=== PATIENT | male | born 1970 | race Caucasian/White ===

== ENCOUNTER 2022-05-03 17:45 | Emergency (ER) | payer OTHER, SELFPAY ==
[2022-05-03 17:46] VITALS: BP 153/91; PULSE 98; RESP 16; TEMP 36.8; O2SAT 98; BMI 29.9
--- NOTE | 2022-05-03 18:28 | EDS_ITS ---
HPI History of Present Illness Chief Complaint: Dental Informant: patient Onset/Context/Timing Onset: Days Narrative Narrative: Patient present secondary to left facial pain and swelling. He had a broken infected tooth that he saw his dentist for on . He was placed on clindamycin. He went back to his dentist today who tried to numb him up and extract the tooth but the anesthetic was not effective and they were not able to continue. Patient states he feels like his left face is now more swollen. Dentist did write him for a new antibiotic but did not write him for anything to control the pain. He has been taking Tylenol and ibuprofen without improvement. PFSH PFS Medical History no medical history no medical history Home Medications clindamycin HCl 150 mg capsule 150 mg PO Q6H 05/03/22 [History Last Taken Unknown] hydrocodone-acetaminophen 5-325mg 5mg-325mg 1 tab PO Q6H PRN pain 3 days #14 tabs 05/03/22 [Rx Last Taken Unknown] Allergy/AdvReac Type Severity Reaction Status Date / Time No Known Allergies Allergy Verified 05/03/22 17:47 Social History Smoking Status: Unknown if ever smoked ROS ROS ED Constitutional Constitutional ED: Denies chills or fever(s) Eyes Eyes: Denies change in vision or discharge from eye(s) ENT ENT ED: Reports other Details: Dental pain with left facial swelling ; Denies discharge from eye(s), rhinorrhea or sore throat Cardiovascular Cardiovascular: Denies chest pain or palpitations Respiratory/Chest Respiratory/Chest: Denies cough or dyspnea Gastrointestinal Gastrointestinal: Denies abdominal pain, nausea or vomiting Musculoskeletal Musculoskeletal: Denies back pain or extremity pain Integumentary Denies Abrasions or rash Neurologic Neurologic: Denies headache(s) or weakness Psychiatric Psychiatric: Denies anxiety or depression Allergic/Immunologic Allergic/Immunologic ED: Denies lip swelling or urticaria EXAM Physical Exam Const Vital Signs: 05/03/22 17:46 Temperature 98.2 F Temperature Source Temporal Pulse Rate 98 Respiratory Rate 16 Blood Pressure 153/91 H Blood Pressure Mean 111 Pulse Ox 98 Oxygen Delivery Method Room Air Positive well nourished and well developed General Appearance ED: well developed HEENT Reports normocephalic and head/scalp atraumatic HEENT Narrative: Mild left maxillary edema. Intraoral examination reveals left maxillary molar broken at gumline with mild surrounding edema. Posterior pharynx exam is normal. There is no evidence of Richardson's angina. He speaks with a strong voice and is tolerating secretions well. 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 He has an appointment to see his dentist next Tuesday. We discussed Richardson's angina so he knows what to monitor for at home. I will write him for [place] at home. Discharge Plan Triage Chief Complaint: Dental ED Provider: Shruthi Guo Dx/Rx/DC Orders Clinical Impression: Dental infection Instructions: ED Dental Abscess Prescriptions: New hydrocodone-acetaminophen 5-325 mg tablet 1 tab PO Q6H PRN (Reason: pain) 3 Days Qty: 14 0RF No Action clindamycin HCl 150 mg Capsule 150 mg PO Q6H Primary Care Provider: NOT,DEFINED Referrals: NOT,DEFINED [Primary Care Provider] -
== END 2022-05-03 18:58 | disposition home or self-care (01) ==
PROVIDERS: Emergency Provider Emergency Medicine; Visit Provider Emergency Medicine
DX: K04.7 Periapical abscess without sinus (principal); R51.9 Headache, unspecified; R22.0 Localized swelling, mass and lump, head
CPT/HCPCS: 99282

== ENCOUNTER → 2022-07-21 | Outpatient (CLI) | payer OTHER, SELFPAY ==
[2022-07-21 12:50] LABS: Absolute Lymphocyte Count 2.38 X10^3/uL (0.83-4.51); Absolute Neutrophil Count 5.1 X10^3/uL (2.0-7.7); Basophil% 1.1 % (0-1); Eosinophil# 0.14 X10^3/uL; Eosinophils% 1.6 % (0-5); Hematocrit 48.5 % (40-54); Hemoglobin 15.5 g/dL (13.0-16.5); Lymphocyte # 2.38 X10^3/ul (0.83-4.51); Lymphocyte % 27.2 % (19-41); Mean Corpuscular Hgb 29.5 pg (27.0-32.0); Mean Corpuscular Volume 92.4 fL (80-94); Mean Platelet Vol. 9.9 fl (6.2-12.0); Monocyte# 1.01 X10^3/uL; Monocyte% 11.5 % (0-10); NRBC Flagged by Analyzer 0 % (0-5); Neutrophil # 5.09 X10^3/uL (2.7-7.7); Neutrophil % 58.1 % (47-70); Platelet Count 366 K/mm3 (150-450); RBC Distribution Width CV 13.4 % (11.6-14.6); RBC Distribution Width SD 45.7 fl (35.1-43.9); Red Blood Count 5.25 M/mm3 (4.6-6.2); White Blood Count 8.8 K/mm3 (4.4-11.0)
[2022-07-21 13:13] LABS: AST(SGOT) 27 U/L (15-37); Alanine Aminotransfer ALT/SGPT 63 U/L (16-61); Albumin, Serum 3.6 g/dL (3.2-5.0); Alkaline Phosphatase 57 U/L (45-117); Anion Gap 9 (5-15); BUN 14 mg/dL (7-18); BUN/Creat Ratio 11.1 RATIO (10-20); Calcium,Total 9.3 mg/dL (8.5-10.1); Chloride 104 mmol/L (98-107); Cholesterol 210 mg/dL (200); Creatinine, Serum 1.26 mg/dL (0.70-1.30); EST Glomerular Filtration Rate 64 mL/min (>60); Est Glom Filt Rate - Afr Amer 78 mL/min (>60); Globulin 3.6 g/dL (2.2-4.2); Glucose 121 mg/dL (74-106); High Density Lipoprotein 38 mg/dL; Potassium 4.6 mmol/L (3.5-5.1); Protein, Total 7.2 g/dL (6.4-8.2); Sodium Level 138 mmol/L (136-145); Triglycerides 191 mg/dL; Very Low Density Lipoprotein 38 mg/dL (5-40)
[2022-07-22 12:02] LABS: Hemoglobin A1c 6.1 % (3.8-5.6)
== END | disposition home or self-care (01) ==
LOC: BIMLAB 09:06
PROVIDERS: PCP Internal Medicine; Referring Provider Internal Medicine; Visit Provider Internal Medicine
DX: R07.89 Other chest pain (principal); R06.02 Shortness of breath; R73.09 Other abnormal glucose
CPT/HCPCS: 36415; 80053; 80061; 83036; 85025

== ENCOUNTER → 2022-08-02 | Outpatient (CLI) | payer OTHER, SELFPAY ==
--- NOTE | 2022-08-02 13:30 | STE_ITS ---
Reason For Study: Chest Pain; Dyspnea Stress Results Protocol: Juan Protocol Maximum Predicted HR: 169 bpm Target HR: 144 bpm % Maximum Predicted HR: 86 % DurationHeart Rate Stage (mm:ss) (bpm) BP Comment Baseline 82 118/88No Chest Pain Juan Protocol Stage I 3:00 111 124/80No Chest Pain Juan Protocol Stage II 3:00 130 134/82No Chest Pain; Mild Dyspnea Juan Protocol Stage III 2:00 146 150/80No Chest Pain; Mod Dyspnea Recovery 112 130/80No Chest Pain; No Dyspnea Stress Duration: 8:00 mm:ss Maximum Stress HR: 146 bpm METS: 10 Baseline Echocardiogram Findings Stress Echo Wall motion Data Resting WM Intermediate WM Stress WM ECHO/Stress Test Echo w/o Contrast Interpretation Summary Exercise stress echo. 52-year-old man with a history of chest pain. Stress protocol: Resting EKG demonstrates normal sinus rhythm with a rate of 86 bpm resting bloo d pressure is 118/88 mmHg. The patient exercised according to the regular Juan protocol for total d uration of 8 minutes completing 2 minutes into stage III of the Juan protocol. The maximum heart ra te attained was 148 bpm which was 87% of max impacted heart rate the maximum workload was 10.1 meta bolic equivalents. At rest there were no ST or T wave changes noted to suggest ischemia and at peak e xercise upsloping ST changes were noted test was terminated due to dyspnea. The peak blood pressure was 150/80 mmHg with a rate-pressure product of 21,900. No clinical angina was noted. Stress echocardiogram. Resting echocardiogram demonstrated preserved left ventricular systolic functio n estimated at 60%. With exercise there was thickening of all henley and reduction of low ventricula r cavity size peaking at approximately 75% with no wall motion abnormalities noted. Conclusion: Normal exercise stress echo at a high workload with no wall motion abnormalitie s of ischemia noted. Ordering Physician: Elly Bryson Referring Physician: Elly Bryson Performed By: Patricia Vizcaino, RDCS, RVT
== END | disposition home or self-care (01) ==
LOC: CVS 13:29
PROVIDERS: PCP Internal Medicine; Visit Provider Internal Medicine
DX: R07.89 Other chest pain (principal); R06.02 Shortness of breath
CPT/HCPCS: 93017; 93350

== ENCOUNTER → 2022-08-24 | Outpatient (CLI) | payer OTHER, SELFPAY | END | disposition home or self-care (01) | LOC: SL 13:06 | PROVIDERS: PCP Internal Medicine; Visit Provider Internal Medicine | DX: R29.818 Other symptoms and signs involving the nervous system (principal); G47.10 Hypersomnia, unspecified | CPT/HCPCS: 95806 ==

== ENCOUNTER → 2022-09-09 | Outpatient (CLI) | payer OTHER, SELFPAY | END | disposition home or self-care (01) | LOC: SL 11:50 | PROVIDERS: PCP Internal Medicine; Visit Provider Internal Medicine | DX: Z46.89 Encounter for fitting and adjustment of other specified devices (principal) ==

== ENCOUNTER → 2023-08-04 | Outpatient (CLI) | payer OTHER, SELFPAY ==
[2023-08-04 12:08] LABS: Absolute Lymphocyte Count 3.03 X10^3/uL (0.83-4.51); Absolute Neutrophil Count 6.4 X10^3/uL (2.0-7.7); Basophil# 0.13 X10^3/uL; Basophil% 1.2 % (0-1); Eosinophils% 1.9 % (0-5); Hematocrit 51.1 % (40-54); Hemoglobin 16.4 g/dL (13.0-16.5); Lymphocyte # 3.03 X10^3/ul (0.83-4.51); Mean Corp Hgb Conc 32.1 g/dL (32-36); Mean Corpuscular Hgb 29.9 pg (27.0-32.0); Mean Corpuscular Volume 93.1 fL (80-94); Mean Platelet Vol. 10.8 fl (6.2-12.0); Monocyte# 1.01 X10^3/uL; Monocyte% 9.3 % (0-10); NRBC Flagged by Analyzer 0 % (0-5); Neutrophil # 6.39 X10^3/uL (2.7-7.7); Neutrophil % 59.1 % (47-70); Platelet Count 381 K/mm3 (150-450); RBC Distribution Width CV 13.6 % (11.6-14.6); RBC Distribution Width SD 46.6 fl (35.1-43.9); Red Blood Count 5.49 M/mm3 (4.6-6.2); White Blood Count 10.8 K/mm3 (4.4-11.0)
[2023-08-04 13:05] LABS: ALB/GLOB Ratio 0.9 RATIO (0.9-2.4); AST(SGOT) 33 U/L (15-37); Alanine Aminotransfer ALT/SGPT 68 U/L (16-61); Albumin, Serum 3.7 g/dL (3.2-5.0); Alkaline Phosphatase 78 U/L (45-117); Anion Gap 8 (5-15); BUN 14 mg/dL (7-18); BUN/Creat Ratio 11.4 RATIO (10-20); Calcium,Total 9.1 mg/dL (8.5-10.1); Chloride 105 mmol/L (98-107); Cholesterol 194 mg/dL (200); Creatinine, Serum 1.23 mg/dL (0.70-1.30); EST Glomerular Filtration Rate 66 mL/min (>60); Est Glom Filt Rate - Afr Amer 79 mL/min (>60); Globulin 4.1 g/dL (2.2-4.2); Glucose 169 mg/dL (74-106); High Density Lipoprotein 36 mg/dL; Potassium 4.7 mmol/L (3.5-5.1); Protein, Total 7.8 g/dL (6.4-8.2); Sodium Level 138 mmol/L (136-145); Triglycerides 329 mg/dL; Very Low Density Lipoprotein 66 mg/dL (5-40)
[2023-08-04 13:27] LABS: Microalbumin,Random Urine 11.6 mg/L (NO RANGE EST.); Microalbumin:Creatinine Ratio 5.6 mg/g CRE (<30 mg/g CRE)
== END | disposition home or self-care (01) ==
LOC: BIMLAB 08:39
PROVIDERS: PCP Internal Medicine; Referring Provider Internal Medicine; Visit Provider Internal Medicine
DX: E11.9 Type 2 diabetes mellitus without complications (principal); E78.2 Mixed hyperlipidemia
CPT/HCPCS: 36415; 80053; 80061; 82043; 82570; 85025

== ENCOUNTER 2023-09-06 07:01 | Day surgery (SDC) | payer OTHER, SELFPAY ==
--- NOTE | 2023-09-05 | COLBX_PTH ---
PATIENT: KALEIGH CUELLAR Jr. LOC: EN U#:[id number] AGE/SX: 53/M ROOM: RE09/06/[address]: Dr. Tung Webster MD : 1970 BED: DIS: 09/06/2023 SPEC #: [id number] RECD: 09/06/23 10:55 STATUS: CHETAN REDafne #: [id number] LAURIE: 09/05/23 00:[address]: Tung Webster DEPT: SURGICAL PATHOLOGY RECD BY: Evaristo Jane ENTERED: 09/06/23 10:55 SP TYPE: COLON BX OTHR DR: Dr. Elly Bryson MD Tissues: A - Cecum, NOS B - Rectum, NOS Procedures: Surgery Specimen Level IV HEADER OPERATION: Colonoscopy, biopsy, polypectomy PRE-OP DIAGNOSIS: Screen for colon cancer TISSUE SUBMITTED: A- Cecum mass biopsy, B- Rectal polyp MICROSCOPIC DIAGNOSIS A. 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 B. Rectal polyp, polypectomy: Hyperplastic polyp. / 09/07/23 COMMENT Definite invasive carcinoma is not identified in the specimen. Correlation with clinical, endoscopic findings and appropriate follow up are necessary. MICROSCOPIC DESCRIPTION Slides are reviewed. GROSS DESCRIPTION A. Received in fixative is one container labeled with the patient's name and designated Cecum mass biopsy. The specimen consists of multiple irregular fragments of light lockhart soft tissue that in aggregate measure 1.0 x 0.3 x 0.1 cm. The specimen is totally submitted in one cassette. B. Received in fixative is one container labeled with the patient's name and designated Rectal polyp. The specimen consists of a pink-red polyp measuring 0.9 x 0.9 x 0.7 cm. The presumed base is inked. The polyp is serially sectioned and submitted entirely in one cassette. / 09/06/2023 TC:0 CPT: 57838f8
[2023-09-06 07:21] VITALS: BP 141/88; PULSE 89; RESP 20; TEMP 35.3; O2SAT 97; BMI 31.4
[2023-09-06] MEDS: Lactated Ringers 1,000 ML 15 ML IV (07:31)
[2023-09-06 07:50] LABS: Bedside Glucose 156 mg/dL (74-106)
--- NOTE | 2023-09-06 07:56 | HP.PCM_ITS ---
HPI - General HPI Narrative KALEIGH CUELLAR, is a 53 M who presents for screening colonoscopy. He has never had a colonoscopy in the past. He reports only family history of colon cancer as his grandfather. He denies any abdominal pain or blood in the stool. He is not on blood thinners. [facility] Medical History (Updated 09/06/23 @ 07:[address] Tung Webster MD) Alcohol use Back pain Bone fracture COPD (chronic obstructive pulmonary disease) CPAP (continuous positive airway pressure) dependence Diabetes Dietary restriction Family hx of colon cancer Former smoker Gout Heartburn History of edema History of irregular heartbeat History of stress test History of ulceration Injury of head and neck Leg cramps Loss of hearing Restless legs Shortness of breath on exertion Wears contact lenses Home Medications atorvastatin 10 mg tablet (Lipitor) 10 mg PO QHS #30 tabs 08/04/23 [Rx Last Taken 09/04/23] metformin 500 mg tablet 500 mg PO DAILY #30 tabs 08/04/23 [Rx Last Taken 09/04/23] ibuprofen 200 mg tablet 400 mg PO Q6H PRN PRN pain 08/09/23 [History Last Taken Unknown] oqhuifan-yu-koqjj 300 mcg-K 60 mcg-lycop 600 mcg-lutein 300 mcg tablet (Century Men 50 Plus) 1 tab PO DAILY 09/02/23 [History Last Taken 09/04/23] Allergy/AdvReac Type Severity Reaction Status Date / Time No Known Allergies Allergy Verified 09/06/23 07:24 Family History (Reviewed 08/18/23 @ 12:39 by Ana Garcia REFRIGERATING TECHNICIAN, REFRIGERATING TECHNICIAN-C) Mother Arthritis Diabetes Hypertension Grandmother Arthritis High cholesterol Hypertension Grandfather Colon cancer Surgical History (Updated 09/02/23 @ 10:07 by Sanam Lopez) History of surgical procedure Hx of neck surgery Social History (Reviewed 08/18/23 @ 12:39 by Ana Garcia REFRIGERATING TECHNICIAN, REFRIGERATING TECHNICIAN-C) household members: spouse current occupational status: employed 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 pets and animals: No Smoking Status: Former smoker quit date: 12/14/21 pack-years: 20 alcohol intake: current alcohol intake frequency: a few times a month details: beer occasionally substance use type: does not use caffeine: Yes (1) Type: coffee frequency: 3-4 times per week do you feel safe at home: Yes Past Medical/Surgical History Planned Operation Planned Operative Procedure/s: CSCOPE OA Previous Hospitalizations/Surgeries HX Hospitalizations: No Any Problems With Anesthesia: No You/Your Family Experience Fever (Hyperthermia) With Anes: No Cholinesterase deficiency: No Cardiovascular Hx Hypertension: No Respiratory Hx Sleep Apnea: Yes CPAP: Yes (NONCOMPLIANT) BIPAP: No Hx Respiratory Tract Infection/Cold (presently): No Result (for STOP score): Positive Smoking Status: Former smoker Neurological Does patient have nerve stimulator: No Reproduction : No Miscellaneous Recent Exposure to Contagious Disease: No Allergies No Known Allergies Allergy (Verified 09/06/23 07:24) Discharge Is Pt Admitted From a Senior Care, or a Intermediate: No After D/C, Where Do you Plan to Go: Return Home Vital Signs Vital Signs Vital Signs: 09/06/23 07:21 09/06/23 07:21 Temperature 95.6 F L Temperature Source Temporal Pulse Rate 89 Respiratory Rate 20 H Respiratory Pattern Normal Blood Pressure 141/88 H Blood Pressure Mean 105 Blood Pressure Source Monitor Blood Pressure Position Semi-Fowlers Blood Pressure Location Right Arm Pulse Ox 97 Oxygen Delivery Method Room Air Weight Weight: 251 lb 5.231 oz Body Mass Index (BMI) 31.4 Physical Exam Const alert and oriented x3 HEENT normocephalic Eyes PERRL Resp normal respiratory effort and normal air movement Cardio regular rate and regular rhythm GI soft to palpation, non-tender and non-distended Extremity normal to inspection Assessment & Plan Assessment/Plan (1) Screen for colon cancer: PLAN: I explained endoscopy in detail to the patient. I explained the risks including but not limited to stroke or heart attack with anesthesia, perforation of the GI tract, bleeding, infection. I explained that any of these could necessitate further emergency surgery. The patient understands and all questions were answered sufficiently. The patient wishes to proceed with procedure. Tung Webster MD Pager: [facility] [address] [place] [address], [address] [place] [address] Office: Surgery Risks - Colonoscopy Risks Include but are not Limited To: Risks include but are not limited to: Bleeding, perforation requiring further surgery, inability to complete colonoscopy requiring barium enema.
[2023-09-06 08:30] VITALS: BP 107/86; BP 141/88; PULSE 73; RESP 16; TEMP 36.3; O2SAT 92
--- NOTE | 2023-09-06 08:31 | OP.COLON_ITS ---
Patient Name: Alvino Ballard Procedure Date: 09/06/2023 8:02 AM Date of : 1970 Age: 53 Procedure: Colonoscopy Indications: Screening for colorectal malignant neoplasm Providers: Tung Webster MD Referring MD: Elly Bryson Md Medicines: Propofol per Anesthesia Patient Profile: This is a 53 year old male. Refer to note in patient chart for documentation of history and physical. Last Colonoscopy: none. The patient's first colonoscopy is today. Complications: No immediate complications. Procedure: Pre-Anesthesia Assessment: - Prior to the procedure, a History and Physical was performed, and patient medications and allergies were reviewed. The patient's tolerance of previous anesthesia was also reviewed. The risks and benefits of the procedure and the sedation options and risks were discussed with the patient. All questions were answered, and informed consent was obtained. Prior Anticoagulants: The patient has taken no anticoagulant or antiplatelet agents. After reviewing the risks and benefits, the patient was deemed in satisfactory condition to undergo the procedure. After I obtained informed consent, the scope was passed under direct vision. Throughout the procedure, the patient's blood pressure, pulse, and oxygen saturations were monitored continuously. The pediatric colonoscope was introduced through the anus and advanced to the cecum, identified by appendiceal orifice and ileocecal valve. The colonoscopy was performed without difficulty. The patient tolerated the procedure well. The quality of the bowel preparation was good. The ileocecal valve, appendiceal orifice, and rectum were photographed. Scope In: 8:12:16 AM Scope Withdrawal Time 0 hours 9 minutes 42 seconds Scope Out: 8:26:20 AM Total Procedure Duration Time 0 hours 14 minutes 4 seconds Findings: A polypoid non-obstructing large mass was found in the cecum. The mass was non-circumferential. No bleeding was present. This was biopsied with a cold forceps for histology. A medium polyp was found in the rectum. The polyp was removed with a hot snare. Resection and retrieval were complete. The exam was otherwise without abnormality on direct and retroflexion views. Impression: - Tumor in the cecum. Biopsied. - One medium polyp in the rectum, removed with a hot snare. Resected and retrieved. - The examination was otherwise normal on direct and retroflexion views. Recommendation: - Discharge patient to home. - Resume previous diet. - Continue present medications. - Await pathology results. - Repeat colonoscopy for surveillance based on pathology results. - Return to my office in 1 week. Procedure Code(s): --- Professional --- 40775, 33, Colonoscopy, flexible; with removal of tumor(s), polyp(s), or other lesion(s) by snare technique 17599, 59, Colonoscopy, flexible; with biopsy, single or multiple Diagnosis Code(s): --- Professional --- Z12.11, Encounter for screening for malignant neoplasm of colon D49.0, Neoplasm of unspecified behavior of digestive system D12.8, Benign neoplasm of rectum CPT copyright 2021 [employer]. All rights reserved. The codes documented in this report are preliminary and upon irrigation equipment installer review may be revised to meet current compliance requirements. Tung Webster MD 09/06/2023 8:30:46 AM This report has been signed electronically. Number of Addenda: 0 Note Initiated On: 09/06/2023 8:02 AM
--- NOTE | 2023-09-06 08:31 | OP.CCLET_ITS ---
09/06/2023 Elly Bryson Md Re : Colonoscopy procedure for Alvino Ballard Dear Braydon This procedure was performed on Wednesday, September 06, 2023. My impressions and recommendations are as follows: Impressions : - Tumor in the cecum. Biopsied. - One medium polyp in the rectum, removed with a hot snare. Resected and retrieved. - The examination was otherwise normal on direct and retroflexion views. Recommendations : - Discharge patient to home. - Resume previous diet. - Continue present medications. - Await pathology results. - Repeat colonoscopy for surveillance based on pathology results. - Return to my office in 1 week. My findings are described in the full procedure note, which is enclosed. If I can be of further assistance, please feel free to contact me at Doctor phone number(s): , Work: . Sincerely, Tung Webster MD 09/06/2023 8:30:46 AM This report has been signed electronically.
[2023-09-06 08:35] VITALS: BP 114/66; BP 141/88; PULSE 73; RESP 16; O2SAT 92
[2023-09-06 08:40] VITALS: BP 100/73; BP 141/88; PULSE 74; RESP 16; O2SAT 92
[2023-09-06 08:45] VITALS: BP 104/75; BP 141/88; PULSE 74; RESP 16; TEMP 36.5; O2SAT 100
[2023-09-06 09:05] VITALS: BP 141/88
== END 2023-09-06 09:15 | disposition home or self-care (01) ==
LOC: EN 07:03 → AC 07:04
PROVIDERS: PCP Internal Medicine; Referring Provider Internal Medicine; Visit Provider Surgery
PROC: 0DJD8ZZ Inspection of Lower Intestinal Tract, Via Natural or Artificial Opening Endoscopic (ICD-10-PCS; CPT 45378; principal; 2023-09-06 08:10)
DX: Z12.11 Encounter for screening for malignant neoplasm of colon (principal); J44.9 Chronic obstructive pulmonary disease, unspecified; E11.9 Type 2 diabetes mellitus without complications; D01.0 Carcinoma in situ of colon; K62.1 Rectal polyp; Z80.0 Family history of malignant neoplasm of digestive organs; Z87.891 Personal history of nicotine dependence; Z79.899 Other long term (current) drug therapy; Z79.84 Long term (current) use of oral hypoglycemic drugs
CPT/HCPCS: 45385; 45380; 82962; 88305; J7120; J2405

== ENCOUNTER → 2023-09-20 | Outpatient (CLI) | payer OTHER, SELFPAY ==
--- NOTE | 2023-09-20 07:18 | CT_ITS ---
STUDY: LOW DOSE CT LUNG CANCER SCREENING REASON FOR EXAM: Male, 53 years old. Smoker RADIATION DOSAGE (If Supplied By Facility): CTDIvol = ( 4.02 ) mGy, DLP = ( 158.53 ) mGycm TECHNIQUE: No contrast was administered. Low dose technique was utilized (average mAS-38 and kVp 120). 1.25 mm axial source images with a slice interval of 1.25-mm were reconstructed in lung windows. 2.5 mm axial source images with a slice interval of 2.5-mm were reconstructed in lung windows. 5.0 mm axial source images with a slice interval of 5.0-mm were reconstructed in soft tissue windows. COMPARISON: None. NODULES: No suspicious nodules are seen. Emphysema: Minimal degree of emphysematous changes more prominent in the upper lobes. Minimal linear scarring at the lung bases. Endobronchial lesion: None Aorta: Unremarkable. CORONARY ARTERIES: Coronary artery calcification is seen. Heart: Unremarkable Pulmonary artery: Unremarkable Mediastinal nodes: Unremarkable Other chest and abdominal findings: CT/Low Dose CT Lung Screening IMPRESSION: Lung-RADS category 2 - Continue annual screening with LDCT in 12 months. IMPORTANT NOTES FOR USE: ACR Lung-RADS Version 1.1 Assessment Categories Release Date: 2018 Category: Coded 0-4 bases on nodule(s) with highest degree of suspicion. Negative screen is defined as categories 1 and 2; a positive screen is defined as categories 3 and 4. Category 3 and 4A nodules that are unchanged on interval CT should be coded as category 2, and individuals returned to screening in 12 months. Category 4X: Category 3 or 4 nodules with additional imaging findings that increase the suspicion of lung cancer, such as spiculation, GGN that doubles in size in 1 year, enlarged lymph notes, etc. Category Modifiers: S (significant finding unrelated to lung cancer) Electronically Signed: Fabian Malcolm MD at 9:57 EDT ,
--- NOTE | 2023-09-20 07:18 | CT_ITS ---
STUDY: CT CHEST, ABDOMEN T PELVIS WITH CONTRAST REASON FOR EXAM: Male, 53 years old. colon cancer-NEW DIAGNOSIS RADIATION DOSAGE (If Supplied By Facility): CTDIvol = ( 20.52 ) mGy, DLP = ( 2216.62 ) mGycm TECHNIQUE: Transaxial imaging was performed following intravenous administration of IV 100mL Isovue-370. Oral contrast was administered. Individualized dose optimization techniques were used for this CT. COMPARISON: No relevant priors. FINDINGS: CHEST Mild to moderate cystic emphysematous changes are present bilaterally. No visualized consolidation or pulmonary edema or pleural effusion. No nodules or spiculated lesions are present. Mild interstitial fibrotic scarring is seen in the lung bases. There is no demonstrated pleural abnormality. Normal heart and pericardium. There are calcifications of the coronary arteries. Normal mediastinum. Normal hilar regions. Normal unenhanced pulmonary arteries. Normal aorta arch and descending thoracic aorta. There is an increased kyphosis of the thoracic spine. ABDOMEN No visualized primary or metastatic lesions to the solid organs or omentum. No lymphadenopathy is present. No lytic or blastic lesions are seen in the bony structures. There is decreased attenuation of the liver consistent with steatosis. Normal gallbladder and extrahepatic biliary system. Normal spleen. Normal pancreas. Normal bilateral adrenal glands. Normal right kidney. Normal left kidney. The stomach and small bowel loops are opacified with oral contrast. No contrast is present in the colon. A 3.05 x 2.74 cm lobular soft tissue mass is present in the base of the cecum, consistent with malignant neoplasm. The remaining colonic loops are unremarkable. Normal visualized stomach. Normal small intestine. Normal colon. The appendix is visualized and appears normal. There is diffuse atherosclerotic calcification of the abdominal aorta, without a demonstrated aneurysm. Normal inferior vena cava. Normal retroperitoneum. There is a small umbilical hernia containing fat. There are diffuse degenerative changes of the visualized lumbar spine. PELVIS Normal urinary bladder. Small fat-containing right inguinal hernia. Normal visualized small intestine. There are multiple colonic diverticula of the sigmoid colon consistent with chronic diverticulosis. There is no pelvic fluid. There is no pelvic lymphadenopathy or mass lesion. Normal visualized pelvic arteries. Normal abdominal wall. There are diffuse degenerative changes of the visualized lumbar spine. CT/CT Chest, Abd, Pel w/Contrast IMPRESSION: 1. Chest: No acute or subacute process 2. Abdomen and pelvis: A 3.05 x 2.74 cm lobular soft tissue mass is present in the base of the cecum, consistent with malignant neoplasm. The remaining colonic loops are unremarkable. Electronically Signed: Francesco Latif MD at 12:49 EDT ,
[2023-09-20 07:52] LABS: CREATININE FINGERSTICK < 1.0 mg/dL (0.70-1.30); EGFR FINGERSTICK > 60.0000 mL/min (>60)
== END | disposition home or self-care (01) ==
PROVIDERS: PCP Internal Medicine; Referring Provider Nurse Practitioner Acute Care; Visit Provider Nurse Practitioner Acute Care
DX: C18.9 Malignant neoplasm of colon, unspecified (principal); F17.210 Nicotine dependence, cigarettes, uncomplicated
CPT/HCPCS: 71260; 71271; 74177; Q9967

== ENCOUNTER 2023-10-24 09:49 | Inpatient (IN) | payer OTHER, SELFPAY ==
--- NOTE | 2023-10-19 07:14 | EKG12_ITS ---
Test Reason : PREOP Blood Pressure : / mmHG Vent. Rate : 090 BPM Atrial Rate : 090 BPM P-R Int : 164 ms QRS Dur : 088 ms QT Int : 368 ms P-R-T Axes : 056 005 058 degrees QTc Int : 450 ms Sinus rhythm with Premature supraventricular complexes Otherwise normal ECG Confirmed by AMPARO ISLAS, AUDIE ([id number]), order editor NEERU MARTINEZ ([id number]) on 10/20/2023 6:06:17 AM Referred By: Tung Webster Confirmed By:AUDIE CHRISTENSEN MD
[2023-10-19 09:50] LABS: Magnesium 2.5 mg/dL (1.6-2.6)
[2023-10-24] VITALS (15 sets, daily range): BP systolic 94–132; BP diastolic 64–96; PULSE 73–98; RESP 16–18; TEMP 36.1–37.2; O2SAT 94–98; BMI 30.6
--- NOTE | 2023-10-24 | IMM_PTH ---
PATIENT: KALEIGH CUELLAR Jr. LOC: MS3 U#:[id number] AGE/SX: 53/M ROOM: MS305 RE10/24/[address]: Dr. Tung Webster MD : 1970 BED: 1 DIS: 10/31/2023 SPEC #: [id number] RECD: 11/01/23 09:30 STATUS: CHETAN REDafne #: [id number] LAURIE: 10/24/23 00:[address]: Tung Webster DEPT: IMMUNOHISTOCHEMISTRY RECD BY: Ranulfo Pitts ENTERED: 11/01/23 09:31 SP TYPE: IMMUNO OTHR DR: MD Dr. Asa Nguyễn MD Tissues: Colon, NOS Procedures: MSH2 (add) MLH-1 (add) MSH6 (add) Anti-PMS2 (add) KI-67 (add) P53 (add) MOC-31 (add) HER-2-BENOIT (initial) PHYSICIAN & INSTITUTION [address] [address] SPECIMEN INFORMATION: Tissue Source: Right colon Clinical Info: Colon cancer Specimen Number: [id number] CPT code: 58400,84909t2 METHODOLOGY: Deparaffinized sections of prefer/formalin-fixed tissue or PAP/DQ stained slides are incubated with monoclonal/polyclonal antibodies/oligonucleotide probes. Localization is made via biotin free immunoperoxidase method. Appropriate controls are performed and reacted as expected. Results on target cell population are indicated in the following table: RESULTS: ANTIBODY / CLONE RESULT MOC-31 (4561) positive Her-2neu (CB11) negative P53 (DO-7) Inconclusive, indeterminate Ki-67 (30-9) positive, >90% PMS2 (GLE8040) positive MSH6 (44) positive MSH2 (25D12) positive MLH1 (M1) positive These tests were developed and their performance characteristics determined by [facility]. They may not have been cleared or approved by the U.S. Food and Drug Administration. The FDA has determined that such clearance or approval is not necessary. The above immunohistochemical/dualISH markers are ordered and reviewed by the Pathologist. INTERPRETATION: Right colon, colectomy: Invasive adenocarcinoma. Negative (no loss of mismatch protein; no microsatellite instability detected). MAGGIE/ 11/01/2023
[2023-10-24] MEDS: Lactated Ringers 1,000 ML 40 ML IV ×3 (10:19→19:45)
[2023-10-24] MEDS: Gabapentin 600 MG Tablet PO (10:20)
[2023-10-24] MEDS: Magnesium 1 GM over 15 mins IV (10:20)
[2023-10-24] MEDS: Acetaminophen 500 MG Tablet 1000 MG PO ×3 (10:20→23:05)
[2023-10-24 11:10] LABS: Bedside Glucose 218 mg/dL (74-106)
--- NOTE | 2023-10-24 11:16 | HP.PCM_ITS ---
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 Is patient in pain?: No Allergies No Known Allergies Allergy (Verified 09/13/23 09:55) Medications atorvastatin 10 mg tablet (Lipitor) 10 mg PO QHS #30 tabs 08/04/23 [Rx Confirmed 09/13/23] metformin 500 mg tablet 500 mg PO DAILY #30 tabs 08/04/23 [Rx Confirmed 09/13/23] ibuprofen 200 mg tablet 400 mg PO Q6H PRN PRN pain 08/09/23 [History Confirmed 09/13/23] zdxriloy-cn-leyor 300 mcg-K 60 mcg-lycop 600 mcg-lutein 300 mcg tablet (Century Men 50 Plus) 1 tab PO DAILY 09/02/23 [History Confirmed 09/13/23] metronidazole 500 mg tablet 500 mg PO .COMPLEX #6 tabs 09/13/23 [Rx Confirmed 09/13/23] neomycin 500 mg tablet 500 mg PO .COMPLEX pre-op antibiotics #6 tabs 09/13/23 [Rx Confirmed 09/13/23] PFSH Medical History (Updated 09/13/23 @ 13:[address] Tung Webster MD) Alcohol use Back pain Bone fracture Colon cancer COPD (chronic obstructive pulmonary disease) CPAP (continuous positive airway pressure) dependence Diabetes Dietary restriction Family hx of colon cancer Former smoker Gout Heartburn History of edema History of irregular heartbeat History of stress test History of ulceration Injury of head and neck Leg cramps Loss of hearing Restless legs Shortness of breath on exertion Wears contact lenses Surgical History History of surgical procedure Hx of neck surgery Family History Mother Arthritis Diabetes HypertensionGrandmother Arthritis High cholesterol HypertensionGrandfather Colon cancer Social History household members: spouse current occupational status: employed 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 He had a mass in the cecum. Mass was biopsied and did not show carcinoma in situ. Patient has no other complaints since his colonoscopy. ROS General General: No weight change, appetite, fatigue, colon cancer, breast cancer or weakness HEENT HEENT: No difficulty swallowing, eye injury, eye surgery, swollen glands or hoarseness Endo Endocrine: No thyroid disease, diabetes mellitus, thyroid cancer, Hair loss, heat intolerance or cold intolerance Skin Skin: No rash or changing moles Breast Breast: No left breast lump, right breast lump, nipple discharge, breast pain, abnormal mammogram, abnormal US or breast enlargement Musc Musculoskeletal: No back problems, arthritis, rheumatoid arthritis, gout or joint pain Cardio Cardiovascular: No murmur, pacemaker, heart disease, atrial fibrillation, high blood pressure, heart attack, heart stent, palpitations, shortness of breat with exertion or chest pain Psych Psychiatric: No depression, anxiety or hearing voices Resp Respiratory: No shortness of breath, Yes sleep apnea, No cough, No COPD, No asthma, No emphysema and No wheezing Gastro Gastrointestinal: No abdominal pain, No nausea or vomiting, No diarrhea, No constipation, No blood in stool, No acid reflux, No hemorrhoids, No ulcers, No gallbladder problem and No black,tarry stools Cy Hematologic: No blood thinners, No blood disorders, No bleeding, No anemia and No blood clots Neuro Neurologic: No system reviewed and no additional complaints, except as documented, No as per HPI, No abnormal gait, No abnormal hearing, No abnormal movements, No abnormal speech, No behavioral changes, No burning sensations, No confusion, No convulsions, No disequilibrium, No dizziness, No localized weakness, No frequent falls, No headache(s), No lack of coordination, No loss of vision, No memory loss, No numbness, No other visual disturbances, No radicular pain, No restless legs, No sensory deficit, No syncope, No tingling, No tremor(s), No weakness and No other Exam Const General: cooperative Orientation: alert and oriented x3 HENMT Head: normal to inspection Neck Neck: normal visual inspection and full ROM Chest Chest palpation & inspection: normal inspection of the chest Resp Effort & Inspection: normal respiratory effort Auscultation: clear to auscultation bilaterally Cardio Rate: regular rate Rhythm: regular rhythm GI Inspection: non-distended Palpation: soft and nontender Skin General: no rashes or lesions noted Neuro General: patient alert and patient oriented x3 Extrem General: full ROM Psych Appearance: grossly normal Mental Status: mental status grossly normal Assessment and Plan Assessment and Plan (1) Colon cancer: Status: Acute Qualifiers: Colon location: ascending Qualified Code(s): C18.2 - Malignant neoplasm of ascending colon Plan: Patient had a large area in the cecum which was biopsied and showed carcinoma in situ. I discussed that we would treat this is cancer until otherwise discovered and I recommended staging CT scan of the chest abdomen pelvis and then proceeding with laparoscopic right hemicolectomy. I discussed the procedure in detail with the patient. I discussed the risks including but not limited to bleeding, infection, injury to underlying organs, anastomotic leak. Patient understands all the risks and is willing to proceed. He was given bowel prep instructions and I will sign him on for ERAS protocol. Tung Webster MD Pager: [facility] [address] [place] [address], [address] [place] [address] Office: I have examined the patient and the H&P has been reviewed. There are no clinical changes since date of exam.
[2023-10-24] MEDS: Cefotetan 2 GM in 0.9% Normal Saline (100mL MB+) 100 ML IV (11:39)
--- NOTE | 2023-10-24 12:05 | COL._PTH ---
PATIENT: KALEIGH CUELLAR Jr. LOC: MS3 U#:[id number] AGE/SX: 53/M ROOM: [facility] RE10/24/[address]: Dr. Tung Webster MD : 1970 BED: 1 DIS: 10/31/2023 SPEC #: [id number] RECD: 10/24/23 14:51 STATUS: CHETAN LUI #: [id number] LAURIE: 10/24/23 12:[address]: Tung Webster DEPT: SURGICAL PATHOLOGY RECD BY: Latricia Barragan ENTERED: 10/25/23 06:14 SP TYPE: COLON OTHR DR: MD Dr. Asa Nguyễn MD Tissues: Colon, NOS Procedures: Surgery Specimen Level HEADER OPERATION: Laparoscopic, right ERAS uriel colectomy PRE-OP DIAGNOSIS: Colon cancer TISSUE SUBMITTED: Omentum and right colon MICROSCOPIC DIAGNOSIS Right colon, right colectomy: Invasive adenocarcinoma. See cancer synoptic report below. AM/mr 10/27/2023 COMMENT COLON CANCER SUMMARY: Specimen - Right colon Procedure - Right colectomy Tumor site - right colon Tumor size - 3.0 x 3.0 x 1.2cm Macroscopic tumor perforation - Not identified Histologic type - Adenocarcinoma (mucinous component is at 20%) Histologic grade - G2 (moderately differentiated) Microscopic tumor extension - colon tumor invades into muscularis propria Margins: All margins are uninvolved by invasive carcinoma Distance of invasive carcinoma from closest axial margin - 13.0cm from distal mucosal margin Treatment effect - Unknown Lymphvascular invasion - Not identified Perineural invasion - Not identified Tumor deposits - Not identified Type of polyp in which invasive carcinoma arose - not identified Lymph nodes: Regional lymph nodes- 16 out of 16 lymph nodes, negative for carcinoma Additional pathologic findings - Acute and chronic inflammation and micro abscess formation Ancillary studies: [id number] See microsatellite instability study by IHC ([id number]) for complete details. Negative (no loss of mismatch protein; no microsatellite instability detected). PATHOLOGIC STAGE: T2 N0 Mx The above summary is in compliance with [employer] (CAP) Cancer Protocols Checklist and [place] Joint Committee on Cancer (AJCC), Staging Manual, 8th Ed. Case has been reviewed in consultation with Dr. العراقي who concurs with the above diagnosis. IDC:SJ Reference is made to the patient's cecal mass biopsy [id number] in which fragments of tubular adenoma with focal high grade dysplasia was identified. MICROSCOPIC DESCRIPTION Slides are reviewed. GROSS DESCRIPTION Received in fixative is one container labeled with the patient's name and designated Omentum and right colon. The specimen is of right colectomy and consists of segment of cecum with ascending colon, transverse colon, small intestine and appendix and attached omentum. Cecum, ascending colon and right transverse colon measure 31.0cm in length, small intestine measures 17.0cm in length and appendix measures 10.0cm in length and 0.5cm in diameter. The attached omentum measures 27.0 x 16.0 x 3.0cm. Lumen contains a small amount of hemorrhagic fecal material. Both resection margins are stapled. Sections of appendix reveal unremarkable cut surfaces. A polypoid mass is noted at the junction of the cecum and ascending colon measuring 3.0 x 3.0 x 1.2cm. This mass is 0.7cm from the ileocecal valvel. No additional mucosal lesion is identified. Section of the appendix reveal unremarkable cut surfaces. Sections of the polypoid mass reveal it invade the underlying bowel wall. Invasion through the serosal surface is not identified. Serosal surface is inked black. Section of pericolonic adipose tissue reveals multiple lymph nodes. Largest lymph node measures1.0 0cm in greatest dimension. Pit Laborer sections are submitted in 18 cassettes as follows: 1- proximal and distal resection margins, 2- appendix, 3- mortician supplies sales representative sections small and large intestine and ileocecal valve, 4-9- entire polypoid mass, 10- omentum and one bisected lymph node, 11-13- each cassette each containing multiple lymph nodes, 14-17- each cassette containing one bisected lymph node, 18- possible lymph node. SANYA/ 10/25/2023 TC:0 CPT:21629
[2023-10-24] MEDS: BUPIVACAINE LIPOSOME/PF 20 ML VIAL OPERA.SITE (12:06)
[2023-10-24] MEDS: Insulin Lispro 100 UNIT/ML INSULN.PEN SC ×3 (12:13→23:05)
[2023-10-24 15:07] LABS: Bedside Glucose 127 mg/dL (74-106)
[2023-10-24 15:07] LABS: Bedside Glucose 171 mg/dL (74-106)
--- NOTE | 2023-10-24 15:07 | PCM.OPRPT ---
Report of Operation Date of Procedure: 10/24/23 Pre-Operative Diagnosis: Cecal mass Post-Operative Diagnosis: Same Surgery/Procedure Performed:: Laparoscopic converted to open right hemicolectomy Type of Anesthesia: General/Regional Specimen's removed: Right colon Estimated Blood Loss (mL): 50 Description of Procedure: The patient was brought back to the operating room and general anesthesia was induced. The abdomen was prepped and draped in the usual sterile fashion. A curvilinear incision was made inferior to the umbilicus and the umbilical hernia was used to enter the abdomen. A port was placed and the abdomen is insufflated to 15 mmHg. Patient was placed in Trendelenburg position. A 5 mm port was placed in the upper midline as well as the left abdominal lateral sidewall. Under laparoscopic guidance a tap block was performed bilaterally. Next the white line of Toldt was taken down laterally from the right colon. Dissection was carried inferiorly where the peritoneum was divided. The patient had an overabundance of omental fat and this was very difficult. Patient had a lot of fat in his mesentery as well. After the cecum was mobilized and the hepatic flexure was taken down the camera and instruments were removed from the abdomen. A midline incision was made superior to the umbilicus all the way to the superior port site which was deepened to the fascia. The fascia was incised and the wound protector was placed. I had a very difficult time delivering the specimen through the incision as the omentum was taking up most of the incision and it had to be extended. Once I was able to get to the transverse colon it was divided using a TRI stapler and the mesentery was taken back to the right colic pedicle. The pedicle was clamped with right angles and then divided. Next the pedicle vessels were suture-ligated using 0 silk suture. Next mesenteric dissection was carried distally until the right colon pedicle was encountered. Next the distal small bowel was divided using a TRI stapler. The mesentery was taken down back to the right colon pedicle from proximal to distal using Enseal. Next the pedicle was dissected on the right and the artery and vein were each clamped and suture-ligated using 0 Vicryl suture. The specimen was sent for pathology. The abdomen was irrigated and suctioned dry. Next a corner of each staple line was removed and a TRI stapler was used to anastomose the small bowel to the transverse colon. The staple line was hemostatic and a TIA stapler was used to staple across the enterostomy. A few 3-0 silk sutures were used to stop bleeding at the staple line. A 3-0 silk suture was used as a crotch suture. The bowel was returned to the abdomen is irrigated and suctioned dry. There was still oozing going on in the abdomen that I cannot find. I placed the patient in airplane and Trendelenburg and reverse Trendelenburg and irrigated and suctioned the abdomen. There is still some mild oozing but I cannot find the source. The abdomen is irrigated and suctioned dry and some hemoblast was placed over the raw surfaces on the right side of the abdomen. Next gown and gloves were changed and the wound protector was removed. The omentum was placed over the bowel and the fascia was closed with two #1 PDS suture starting on the ends meeting in the middle. The umbilical hernia was closed with a [id number] 0 Vicryl suture. All of the skin was injected with local anesthetic. The midline incision was irrigated with Irrisept and then closed with interrupted 4-0 Monocryl sutures. Steri-Strips and bandages were applied. Patient was awoken and taken to PACU in stable condition. Admit VTE Documentation VTE Mechan Device Prophylaxis: SCD's
[2023-10-24 15:52] LABS: Hematocrit 50.1 % (40-54); Hemoglobin 16.1 g/dL (13.0-16.5)
[2023-10-24 16:16] LABS: Bedside Glucose 178 mg/dL (74-106)
[2023-10-24 16:24] LABS: International Normalized Ratio 1.3; Prothrombin Time (Protime)PT. 15.9 SECONDS (11.7-14.9)
[2023-10-24 18:27] LABS: Bedside Glucose 159 mg/dL (74-106)
[2023-10-24] MEDS: Lactated Ringers 500 ML 999 ML IV (19:06)
[2023-10-24] MEDS: HYDROmorphone 0.5 MG/0.5 ML SYRINGE IV ×2 (19:45→23:05)
[2023-10-24 23:43] LABS: Bedside Glucose 170 mg/dL (74-106)
[2023-10-25] VITALS (7 sets, daily range): BP systolic 115–153; BP diastolic 80–87; PULSE 78–100; RESP 16–18; TEMP 36.3–37.2; O2SAT 93–96
[2023-10-25] MEDS: HYDROmorphone 0.5 MG/0.5 ML SYRINGE IV ×2 (03:29→08:12)
[2023-10-25] MEDS: Lactated Ringers 1,000 ML 100 ML IV (03:31)
[2023-10-25] MEDS: Acetaminophen 500 MG Tablet 1000 MG PO ×3 (06:01→19:27)
[2023-10-25] MEDS: Insulin Lispro 100 UNIT/ML INSULN.PEN SC ×3 (06:01→17:07)
[2023-10-25 06:02] LABS: Hematocrit 43.7 % (40-54); Hemoglobin 14.2 g/dL (13.0-16.5); Mean Corp Hgb Conc 32.5 g/dL (32-36); Mean Corpuscular Hgb 30.3 pg (27.0-32.0); Mean Corpuscular Volume 93.2 fL (80-94); Mean Platelet Vol. 10.4 fl (6.2-12.0); Platelet Count 333 K/mm3 (150-450); RBC Distribution Width CV 13.5 % (11.6-14.6); RBC Distribution Width SD 45.3 fl (35.1-43.9); Red Blood Count 4.69 M/mm3 (4.6-6.2); White Blood Count 12.4 K/mm3 (4.4-11.0)
[2023-10-25 06:23] LABS: Bedside Glucose 191 mg/dL (74-106)
[2023-10-25 06:35] LABS: Anion Gap 5 (5-15); BUN 12 mg/dL (7-18); BUN/Creat Ratio 9.8 RATIO (10-20); Calcium,Total 7.7 mg/dL (8.5-10.1); Chloride 106 mmol/L (98-107); Creatinine, Serum 1.23 mg/dL (0.70-1.30); EST Glomerular Filtration Rate 66 mL/min (>60); Est Glom Filt Rate - Afr Amer 79 mL/min (>60); Estimated Creatinine Clearance 94.51 ml/min; Glucose 181 mg/dL (74-106); Potassium 3.7 mmol/L (3.5-5.1); Sodium Level 135 mmol/L (136-145)
--- NOTE | 2023-10-25 07:21 | PCM.PN.SRG ---
Subjective Subjective Patient seen and examined during AM rounds. He is found resting out of bed in the chair. He states that he had a bit of a difficult overnight course due to some breakthrough discomfort but reports that his pain medication is working when it is administered. He reports his present discomfort at a 6-7 out of 10. He states he is also troubled by some bloating and suspect some of his discomfort is attributable to this symptom. Objective Data Objective Data Vital Signs: Vital Signs Temp Pulse Resp BP Pulse Ox O2 Del Method O2 Flow Rate 98.9 F 100 18 144/85 H 96 Room Air 2 10/25/23 05:39 10/25/23 05:39 10/25/23 05:39 10/25/23 05:39 10/25/23 05:39 10/25/23 05:39 10/24/23 20:10 Oxygen Flow Rate (L/min) 2 Oxygen Delivery Method Room Air Weight: 244 lb 12.8 oz Body Mass Index (BMI) 30.6 Intake & Output: Intake and Output for Last 24 Hours 10/23/23 10/24/23 10/25/23 23:59 23:59 23:59 Intake Total 4148.67 / 4748.67 910.67 / 910.67 Balance 4148.67 / 4748.67 910.67 / 910.67 Lab / Micro Data 10/25/23 05:13 10/25/23 05:13 Labs: Laboratory Results - last 24 hr 10/24/23 10:15: POC Glucose 218 H 10/24/23 12:41: POC Glucose 127 H 10/24/23 14:48: POC Glucose 171 H 10/24/23 15:40: Hgb 16.1, Hct 50.1, PT 15.9 H, INR 1.3 10/24/23 15:53: POC Glucose 178 H 10/24/23 18:07: POC Glucose 159 H 10/24/23 23:04: POC Glucose 170 H 10/25/23 05:13: WBC 12.4 H, RBC 4.69, Hgb 14.2, Hct 43.7, MCV 93.2, MCH 30.3, MCHC 32.5, RDW Std Deviation 45.3 H, RDW Coeff of Usha 13.5, Plt Count 333, MPV 10.4, Sodium 135 L, Potassium 3.7, Chloride 106, Carbon Dioxide 24.0, Anion Gap 5, BUN 12, Creatinine 1.23, Estim Creat Clear Calc 94.51, Est GFR (MDRD) Af Amer 79, Est GFR (MDRD) Non-Af 66, BUN/Creatinine Ratio 9.8 L, Glucose 181 H, Calcium 7.7 L 10/25/23 05:59: POC Glucose 191 H Physical Exam Const oriented x3 Constitutional Narrative: Appears in mild distress from abdominal discomfort Resp normal respiratory effort GI GI Narrative: Mildly distended, soft, tenderness reported over incision sites as well as right abdominal quadrants. Operative dressings remain clean dry and intact. Assessment & Plan Assessment/Plan (1) Status post right hemicolectomy: PLAN: Patient is 53-year-old male status post laparoscopic assisted right hemicolectomy with primary anastomosis for diagnosis of cecal cancer on 10/24/2023. This morning patient is reporting some breakthrough pain complaints as well as some bloating. Given his description of the belching and bloating I think we should hold on any further diet advancement until he demonstrates return of bowel function. I will also like to improve his pain control with the addition of celecoxib?as a means of trying to avoid narcotics and slowing of the bowel. Encouragingly, patient's hemoglobin is appropriate this morning postoperative day 1 and is not suggestive of significant ongoing losses. Patient encouraged to mobilize as tolerated. Will reassess this afternoon. Clint Schwab MD General Surgery Endocrine Surgery Pager: [facility] [address] [place] [address], [address] [place] [address] Office: [phone] Charges/Coding Visit Charges Inpatient E&M: 26619 Subs Hosp L2
[2023-10-25] MEDS: Magnesium Chloride 64 MG Delay Rel.Tablet 128 MG PO (08:11)
[2023-10-25] MEDS: Docusate Sodium 100 MG Capsule PO ×2 (08:11→22:56)
[2023-10-25] MEDS: Celecoxib 200 MG Capsule PO (11:06)
[2023-10-25] MEDS: Ensure Plus High Protein 120 ML LIQUID PO ×2 (11:06→22:56)
--- NOTE | 2023-10-25 11:15 | CASEMGMT ---
RN CM Assessment Face to Face with patient for initial transition planning/care coordination assessment. RN CM introduced self and role at [facility], pt voices understanding. Pt is A&Ox4 and is resting comfortably in the chair and is calm. Care providers, pharmacy, and demographics verified. Admitting dx: Laparoscopic Rt ERAS Hemicolectomy PCP: Elly Bryson Specialists: [facility] Preferred Pharmacy: [facility] Insurance: MMO Prescription Benefit: Yes LNOK: Gladys Martínez (W), Milka Peñaloza (Daughter) Living Arrangements: Pt lives with his in a single story home with a basement with 2 steps to enter ADLs/IADLs: Ind Transportation: Self, DME: [employer] and supplies. BP Cuff. Denies all other DME uses or needs HHC/SNF: Denies history or needs Pt?s goal: Home Plan: Home no needs. 6-Click is 24. 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 Pt states that he feels safe discharging home, once medically ready, with no additional needs. Pt denies HHC or OP Therapy needs. CM to follow. Larry Anders RN, CM
[2023-10-25 11:42] LABS: Bedside Glucose 219 mg/dL (74-106)
--- NOTE | 2023-10-25 15:07 | CHAPLAIN ---
Type of Pastoral Visit _x__ Initial Visit ___ Follow-up Visit ___ On-call Visit ___ General Patient Visit ___ Spiritual Assessment ___ Family Conference ___ Bereavement ___ Rapid Response ___ Code Blue ___ Other (describe below) Pastoral Care Referral From _x__ Patient ___ Family ___ Nurse ___ Physician ___ Stem Roller Or Crusher Operator ___ Deep Well Contractor ___ Other (describe below) Sacrament/Intervention _x__ Active listening ___ Anointing ___ Voodoo ___ Bereavement ___ Communion _x__ Jacqueline exploration ___ _x__ Life review _x__ Prayer ___ Reconciliation ___ Sacrament of Sick ___ Supportive presence ___ Wedding ___ Other (describe below) Pastoral Comments patient is open to spiritual care and states that he has a worship he attends; pt explains his situation and surgery, believing that 'they probably got everything' and that is was discovered early enough; pt has grandchildren to watch grow up; pt says many people are praying for him and agrees to another prayer by this clerical assistant; pt says that otherwise he is doing pretty well
[2023-10-25] MEDS: oxyCODONE 5 MG Tablet PO (17:06)
[2023-10-25 17:26] LABS: Bedside Glucose 172 mg/dL (74-106)
[2023-10-25 23:21] LABS: Bedside Glucose 149 mg/dL (74-106)
[2023-10-26] MEDS: Acetaminophen 500 MG Tablet 1000 MG PO ×4 (00:50→19:53)
[2023-10-26] MEDS: Ondansetron ODT 4 MG Tablet PO ×2 (05:50→21:09)
[2023-10-26] MEDS: Insulin Lispro 100 UNIT/ML INSULN.PEN SC ×2 (05:53→11:27)
[2023-10-26 06:15] LABS: Bedside Glucose 163 mg/dL (74-106)
[2023-10-26 06:28] VITALS: O2SAT 93
[2023-10-26 07:06] LABS: Absolute Lymphocyte Count 1.38 X10^3/uL (0.83-4.51); Basophil# 0.05 X10^3/uL; Basophil% 0.4 % (0-1); Eosinophil# 0.11 X10^3/uL; Eosinophils% 0.8 % (0-5); Hematocrit 39.5 % (40-54); Hemoglobin 12.7 g/dL (13.0-16.5); Lymphocyte # 1.38 X10^3/ul (0.83-4.51); Lymphocyte % 9.7 % (19-41); Mean Corp Hgb Conc 32.2 g/dL (32-36); Mean Corpuscular Hgb 29.7 pg (27.0-32.0); Mean Corpuscular Volume 92.3 fL (80-94); Mean Platelet Vol. 10.7 fl (6.2-12.0); Monocyte# 1.61 X10^3/uL; Monocyte% 11.3 % (0-10); NRBC Flagged by Analyzer 0 % (0-5); Neutrophil # 11.03 X10^3/uL (2.7-7.7); Neutrophil % 77.2 % (47-70); POSITIVE DIFFERENTIAL YES; Platelet Count 311 K/mm3 (150-450); RBC Distribution Width CV 13.3 % (11.6-14.6); RBC Distribution Width SD 45.3 fl (35.1-43.9); Red Blood Count 4.28 M/mm3 (4.6-6.2); White Blood Count 14.3 K/mm3 (4.4-11.0)
--- NOTE | 2023-10-26 07:14 | PCM.PN.SRG ---
Subjective Subjective The patient reports he is comfortable with no nausea or vomiting. He is tolerating clear liquids. He feels that he has pressure in his pelvis building up like he is going to pass gas soon. He is tolerating clears with no nausea or vomiting. Objective Data Objective Data Vital Signs: Vital Signs Temp Pulse Resp BP Pulse Ox O2 Del Method O2 Flow Rate 97.4 F L 90 18 130/82 H 93 Nasal Cannula 2 10/25/23 22:54 10/25/23 22:54 10/25/23 22:54 10/25/23 22:54 10/25/23 22:54 10/25/23 22:59 10/25/23 22:59 Oxygen Flow Rate (L/min) 2 Oxygen Delivery Method Nasal Cannula Weight: 244 lb 12.8 oz Body Mass Index (BMI) 30.6 Intake & Output: Intake and Output for Last 24 Hours 10/24/23 10/25/23 10/26/23 23:59 23:59 23:59 Intake Total 4148.67 / 4748.67 3160.67 / 3160.67 400 / 400 Balance 4148.67 / 4748.67 3160.67 / 3160.67 400 / 400 Lab / Micro Data 10/25/23 05:13 10/25/23 05:13 Labs: Laboratory Results - last 24 hr 10/25/23 11:24: POC Glucose 219 H 10/25/23 17:01: POC Glucose 172 H 10/25/23 22:57: POC Glucose 149 H 10/26/23 05:53: POC Glucose 163 H Physical Exam Const oriented x3 and no apparent distress Resp normal respiratory effort GI soft to palpation Palpation: tender Assessment & Plan Assessment/Plan (1) Status post right hemicolectomy: PLAN: Patient had right hemicolectomy for large polyp in the cecum. Labs today are pending. Patient reports he is feeling gas building up and thinks he will pass it soon. He is tolerating clears. Continue clears until passing gas and then I will advance diet. Monitor hemoglobin. Labs are pending. He is walking and chewing gum. Pain is well-controlled. Tung Webster MD Pager: [facility] [address] [place] [address], [address] [place] [address] Office:
[2023-10-26 07:21] LABS: Differential Indicated SCAN CRITERIA MET
[2023-10-26 07:34] LABS: Anion Gap 6 (5-15); BUN 8 mg/dL (7-18); BUN/Creat Ratio 8.6 RATIO (10-20); Calcium,Total 8.8 mg/dL (8.5-10.1); Chloride 102 mmol/L (98-107); Creatinine, Serum 0.93 mg/dL (0.70-1.30); Differential Comment SCANNED; EST Glomerular Filtration Rate 90 mL/min (>60); Est Glom Filt Rate - Afr Amer 109 mL/min (>60); Glucose 164 mg/dL (74-106); Magnesium 2.3 mg/dL (1.6-2.6); Phosphorus 2.1 mg/dL (2.5-4.9); Potassium 3.4 mmol/L (3.5-5.1); Sodium Level 134 mmol/L (136-145)
[2023-10-26] MEDS: Potassium Phosphate 30 MM in 0.9% Normal Saline (250mL Bag) 250 ML 42 MM IV (08:30)
[2023-10-26] MEDS: Celecoxib 200 MG Capsule PO (08:31)
[2023-10-26] MEDS: Docusate Sodium 100 MG Capsule PO ×2 (08:31→21:06)
[2023-10-26 09:37] VITALS: BP 133/90; PULSE 91; RESP 18; TEMP 36.9; O2SAT 94
[2023-10-26] MEDS: Ensure Plus High Protein 120 ML LIQUID PO (11:23)
[2023-10-26 11:48] LABS: Bedside Glucose 161 mg/dL (74-106)
[2023-10-26 12:00] VITALS: BP 130/84; PULSE 63; RESP 18; TEMP 37.1; O2SAT 93
[2023-10-26 17:00] VITALS: BP 138/89; PULSE 94; RESP 18; TEMP 37.1; O2SAT 94
[2023-10-26] MEDS: oxyCODONE 5 MG Tablet PO (19:53)
[2023-10-26 21:29] VITALS: BP 129/90; PULSE 95; RESP 16; TEMP 36.6; O2SAT 94
[2023-10-26 22:35] LABS: Bedside Glucose 147 mg/dL (74-106)
[2023-10-27] MEDS: Acetaminophen 500 MG Tablet 1000 MG PO ×3 (01:00→11:17)
[2023-10-27] MEDS: Insulin Lispro 100 UNIT/ML INSULN.PEN SC (06:07)
[2023-10-27 06:11] VITALS: BP 141/92; PULSE 88; RESP 16; TEMP 36.7; O2SAT 94
[2023-10-27 06:49] LABS: Bedside Glucose 168 mg/dL (74-106)
[2023-10-27 07:21] LABS: Absolute Lymphocyte Count 2.09 X10^3/uL (0.83-4.51); Absolute Neutrophil Count 13.5 X10^3/uL (2.0-7.7); Basophil# 0.07 X10^3/uL; Basophil% 0.4 % (0-1); Eosinophil# 0.21 X10^3/uL; Eosinophils% 1.2 % (0-5); Hematocrit 40.8 % (40-54); Hemoglobin 13.5 g/dL (13.0-16.5); Lymphocyte # 2.09 X10^3/ul (0.83-4.51); Lymphocyte % 11.8 % (19-41); Mean Corp Hgb Conc 33.1 g/dL (32-36); Mean Corpuscular Hgb 30.1 pg (27.0-32.0); Mean Corpuscular Volume 91.1 fL (80-94); Mean Platelet Vol. 10.5 fl (6.2-12.0); Monocyte# 1.77 X10^3/uL; NRBC Flagged by Analyzer 0 % (0-5); Neutrophil # 13.45 X10^3/uL (2.7-7.7); Neutrophil % 75.9 % (47-70); POSITIVE DIFFERENTIAL YES; Platelet Count 374 K/mm3 (150-450); RBC Distribution Width CV 13.2 % (11.6-14.6); RBC Distribution Width SD 44.6 fl (35.1-43.9); Red Blood Count 4.48 M/mm3 (4.6-6.2); White Blood Count 17.7 K/mm3 (4.4-11.0)
[2023-10-27 07:23] LABS: Differential Indicated SCAN CRITERIA MET
[2023-10-27 07:56] LABS: Differential Comment SCANNED
--- NOTE | 2023-10-27 08:05 | CT_ITS ---
STUDY: CT ABDOMEN AND PELVIS WITH CONTRAST REASON FOR EXAM: Male, 53 years old. Leukocytosis after right hemicolectomy. History of colon cancer. RADIATION DOSAGE (If Supplied By Facility): CTDIvol = ( 14.33 ) mGy, DLP = ( 1252.79 ) mGycm TECHNIQUE: Transaxial images were obtained from the dome of the diaphragm to the symphysis pubis with oral contrast. Oral and amp; IV Gastrografin and amp; 100mL Isovue-300 was administered. Sagittal and coronal images were reconstructed. Individualized dose optimization techniques were used for this CT. COMPARISON: Comparison is made with prior study September 20, 2023. FINDINGS: Increased markings at the lung bases with areas of confluence suggestive of bibasilar atelectasis more prominent on the right side. Stable 2.3 cm bulla in the right lower lobe. The visualized portions of the heart are within normal limits. There is decreased attenuation of the liver consistent with steatosis. Normal gallbladder and extrahepatic biliary system. Normal spleen. Normal pancreas. Normal bilateral adrenal glands. Normal right kidney. Normal left kidney. Gaseous distention of the oral contrast. There is dilatation of the small bowel loops. The patient is status post right hemicolectomy. Increased markings are seen in the adjacent peritoneal fat in the right mid abdomen. There is evidence of a tiny air bubbles within the mesenteric fat at the level of the operative site suggestive of recent postoperative change rather than a perforation. The appendix is visualized and appears normal. There is scattered atherosclerotic calcification of the abdominal aorta, without a demonstrated aneurysm. Normal inferior vena cava. Normal retroperitoneum. The urinary bladder is empty. Small amount of free fluid is seen in the cul-de-sac. Normal abdominal wall. Normal osseous structures. CT/Abdomen/Pelvis WITH Contrast IMPRESSION: Status post right hemicolectomy with postoperative changes at the operative site. Dilated small bowel loops. This may represent an ileus pattern. The colon is decompressed. There is distention of the stomach with oral contrast. Minimal amount of free intraperitoneal air is seen most likely secondary to recent intra-abdominal surgery. Bibasilar atelectasis is more prominent at the right lung base. Electronically Signed: Fabian Malcolm MD at 11:16 EDT ,
--- NOTE | 2023-10-27 08:09 | PCM.PN.SRG ---
Subjective Subjective The patient reports he is doing better today. He says he is passing gas and had a liquid bowel movement. He denies nausea or vomiting. He is having some indigestion. Objective Data Objective Data Vital Signs: Vital Signs Temp Pulse Resp BP Pulse Ox O2 Del Method O2 Flow Rate 98.1 F 88 16 141/92 H 94 Room Air 2 10/27/23 06:11 10/27/23 06:11 10/27/23 06:11 10/27/23 06:11 10/27/23 06:11 10/27/23 06:11 10/25/23 22:59 Oxygen Flow Rate (L/min) 2 Oxygen Delivery Method Room Air Weight: 244 lb 12.785 oz Body Mass Index (BMI) 30.6 Intake & Output: Intake and Output for Last 24 Hours 10/25/23 10/26/23 10/27/23 23:59 23:59 23:59 Intake Total 3160.67 / 3160.67 2009 Balance 3160.67 / 3160.67 2009 Lab / Micro Data 10/27/23 06:11 10/26/23 06:12 Labs: Laboratory Results - last 24 hr 10/26/23 11:27: POC Glucose 161 H 10/26/23 21:18: POC Glucose 147 H 10/27/23 06:06: POC Glucose 168 H 10/27/23 06:11: WBC 17.7 H, RBC 4.48 L, Hgb 13.5, Hct 40.8, MCV 91.1, MCH 30.1, MCHC 33.1, RDW Std Deviation 44.6 H, RDW Coeff of Usha 13.2, Plt Count 374, MPV 10.5, Immature Gran % (Auto) 0.700, Neut % (Auto) 75.9 H, Lymph % (Auto) 11.8 L, [place] % (Auto) 10.0, Eos % (Auto) 1.2, Baso % (Auto) 0.4, Absolute Neuts (auto) 13.5 H, Absolute Lymphs (auto) 2.09, Nucleated RBC % 0, Differential Comment SCANNED, Diff Path Review May foll Physical Exam Const oriented x3 and no apparent distress Resp normal respiratory effort GI soft to palpation and non-tender Assessment & Plan Assessment/Plan (1) Status post right hemicolectomy: PLAN: The patient says that he is feeling better than yesterday and he is passing gas and had a bowel movement and is tolerating clears. His white count did rise today. I was going to start him on a regular diet but after seeing that I will go back to clears and get a CT scan with oral and IV contrast. Depending on CT scan results I will start a regular diet later today versus taking him back to surgery if there are signs for leak. Tung Webster MD Pager: [facility] [address] [place] [address] [address] [place] [address] Office:
[2023-10-27 08:10] VITALS: BP 144/88; PULSE 97; RESP 18; TEMP 36.4; O2SAT 92
[2023-10-27 08:11] VITALS: O2SAT 98
[2023-10-27] MEDS: Celecoxib 200 MG Capsule PO (08:17)
[2023-10-27] MEDS: Docusate Sodium 100 MG Capsule PO (08:17)
[2023-10-27] MEDS: oxyCODONE 5 MG Tablet PO (08:17)
[2023-10-27] MEDS: Calcium Carbonate 500 MG Tablet 1000 MG PO (08:18)
[2023-10-27] MEDS: Piperacil/Tazobactam 3.375 GM in 0.9% Normal Saline (50mL MB+) 50 ML IV ×3 (10:11→22:28)
[2023-10-27 10:21] LABS: Anion Gap 9 (5-15); BUN 9 mg/dL (7-18); BUN/Creat Ratio 10.7 RATIO (10-20); Calcium,Total 9.1 mg/dL (8.5-10.1); Chloride 99 mmol/L (98-107); Creatinine, Serum 0.84 mg/dL (0.70-1.30); EST Glomerular Filtration Rate 101 mL/min (>60); Est Glom Filt Rate - Afr Amer 123 mL/min (>60); Glucose 156 mg/dL (74-106); Potassium 3.4 mmol/L (3.5-5.1); Sodium Level 135 mmol/L (136-145)
--- NOTE | 2023-10-27 12:30 | PCM.PN.BLA ---
Progress Note I went back up to see the patient and discussed his CAT scan results with him. There is no obvious sign of leak and there were no air bubbles around the anastomosis most of the air bubbles are anterior and likely postoperative. There is no fluid collection or active visitation of contrast. No appreciable abscess. Patient's abdomen is soft but distended. His incision is clean dry and intact with no sign of infection. He reports that he is not burning when he urinates or having any productive cough. I will continue sips and chips and resume IV fluids. KUB in the morning. I did offer the patient NG tube if he becomes nauseous. I also started Zosyn. Tung Webster MD Pager: [facility] [address] [place] [address], [address] [place] [address] Office:
[2023-10-27 14:21] VITALS: BP 156/80; PULSE 92; RESP 18; TEMP 36.3; O2SAT 92
[2023-10-27 14:32] LABS: Pathologist Review Reviewed
[2023-10-27 14:33] LABS: Pathologist Review Reviewed
--- NOTE | 2023-10-27 17:03 | NURSING ---
radiology called for xray, ngt placed.
--- NOTE | 2023-10-27 17:10 | RAD_ITS ---
STUDY: X-RAY - ABDOMEN/PELVIS REASON FOR EXAM: Male, 53 years old. NG palcement TECHNIQUE: KUB COMPARISON: None. FINDINGS: Normal visualized lung bases. Mild nonspecific bowel distention. NG tube placement with tip in the gastric antrum.. There is no demonstrated free abdominal air. The visualized liver, spleen and kidneys are grossly normal in size and morphology. Normal soft tissue structures. Normal visualized osseous structures. RAD/Abdomen Single View IMPRESSION: NG tube placement with tip in the vicinity of the gastric antrum. Electronically Signed: Philippe Clay MD at 19:44 EDT ,
[2023-10-27] MEDS: 0.9% Normal Saline (1000mL) 1,000 ML 60 ML IV (17:40)
[2023-10-27 21:14] VITALS: BP 140/87; PULSE 99; RESP 18; TEMP 36.7; O2SAT 92
[2023-10-27] MEDS: Zolpidem Tartrate 5 MG Tablet PO (22:30)
[2023-10-28 04:15] VITALS: BP 127/91; PULSE 108; RESP 18; TEMP 36.7; O2SAT 92
--- NOTE | 2023-10-28 05:28 | RAD_ITS ---
STUDY: X-RAY - ABDOMEN/PELVIS REASON FOR EXAM: Male, 53 years old. Check NG placement and progress TECHNIQUE: Single AP view of the abdomen / pelvis. COMPARISON: Comparison is made with prior study dated October 27, 2023 at 5:07 PM. FINDINGS: The tip of the nasogastric tube is at the gastroesophageal junction. There is an unremarkable bowel gas pattern. The visualized liver, spleen and kidneys are grossly normal in size and morphology. Normal soft tissue structures. Normal visualized osseous structures. RAD/Abdomen Single View (Portable) IMPRESSION: The tip of the nasogastric tube is at the gastroesophageal junction. Electronically Signed: Fabian Malcolm MD at 8:18 EDT ,
[2023-10-28] MEDS: Piperacil/Tazobactam 3.375 GM in 0.9% Normal Saline (50mL MB+) 50 ML IV ×3 (05:42→22:34)
--- NOTE | 2023-10-28 05:50 | RAD_ITS ---
STUDY: X-RAY - ABDOMEN/PELVIS REASON FOR EXAM: Male, 53 years old. NG placement TECHNIQUE: Single AP view of the abdomen / pelvis. COMPARISON: Comparison is made with prior study done earlier today. FINDINGS: Mild atelectasis at the left lung base. The tip of the nasogastric tube is in the first portion of the duodenum. There is an unremarkable bowel gas pattern. There is no demonstrated free abdominal air. The visualized liver, spleen and kidneys are grossly normal in size and morphology. Normal soft tissue structures. Normal visualized osseous structures. RAD/Abdomen Single View (Portable) IMPRESSION: The tip of nasogastric tube is in the first portion of the duodenum. Electronically Signed: Fabian Malcolm MD at 8:19 EDT ,
[2023-10-28 06:40] LABS: Absolute Neutrophil Count 12.7 X10^3/uL (2.0-7.7); Basophil% 0.6 % (0-1); Eosinophil# 0.17 X10^3/uL; Eosinophils% 1.1 % (0-5); Hematocrit 40.7 % (40-54); Hemoglobin 13.3 g/dL (13.0-16.5); Lymphocyte % 8.7 % (19-41); Mean Corp Hgb Conc 32.7 g/dL (32-36); Mean Corpuscular Hgb 29.9 pg (27.0-32.0); Mean Corpuscular Volume 91.5 fL (80-94); Mean Platelet Vol. 9.9 fl (6.2-12.0); Monocyte# 1.64 X10^3/uL; Monocyte% 10.2 % (0-10); NRBC Flagged by Analyzer 0 % (0-5); Neutrophil # 12.67 X10^3/uL (2.7-7.7); Neutrophil % 78.7 % (47-70); POSITIVE DIFFERENTIAL YES; Platelet Count 442 K/mm3 (150-450); RBC Distribution Width CV 13.3 % (11.6-14.6); RBC Distribution Width SD 44.5 fl (35.1-43.9); Red Blood Count 4.45 M/mm3 (4.6-6.2); White Blood Count 16.1 K/mm3 (4.4-11.0)
[2023-10-28 06:44] LABS: Differential Indicated SCAN CRITERIA MET
[2023-10-28 07:09] LABS: Anion Gap 9 (5-15); BUN 17 mg/dL (7-18); BUN/Creat Ratio 14.4 RATIO (10-20); Calcium,Total 8.8 mg/dL (8.5-10.1); Chloride 98 mmol/L (98-107); Creatinine, Serum 1.18 mg/dL (0.70-1.30); EST Glomerular Filtration Rate 69 mL/min (>60); Est Glom Filt Rate - Afr Amer 83 mL/min (>60); Estimated Creatinine Clearance 98.52 ml/min; Glucose 166 mg/dL (74-106); Phosphorus 4.2 mg/dL (2.5-4.9); Potassium 3.3 mmol/L (3.5-5.1); Sodium Level 136 mmol/L (136-145)
--- NOTE | 2023-10-28 07:14 | PN.SURG_ITS ---
Subjective Subjective Patient reports he is more comfortable than yesterday. He denies nausea. He denies abdominal pain and says his abdomen feels better. He is not passing any flatus. Objective Data Objective Data Vital Signs: Vital Signs Temp Pulse Resp BP Pulse Ox O2 Del Method O2 Flow Rate 98.0 F 108 H 18 127/91 H 92 Room Air 2 10/28/23 04:15 10/28/23 04:15 10/28/23 04:15 10/28/23 04:15 10/28/23 04:15 10/28/23 04:45 10/25/23 22:59 Oxygen Flow Rate (L/min) 2 Oxygen Delivery Method Room Air Weight: 244 lb 12.785 oz Body Mass Index (BMI) 30.6 Intake & Output: Intake and Output for Last 24 Hours 10/26/23 10/27/23 10/28/23 23:59 23:59 23:59 Intake Total 2009 180 / 220 90 / 90 Output Total 1850 / 2550 1550 / 1550 Balance 2009 -1670 / -2330 -1460 / -1460 Lab / Micro Data 10/28/23 06:18 10/28/23 06:18 Labs: Laboratory Results - last 24 hr 10/26/23 06:12: Diff Path Review Reviewed 10/27/23 06:11: WBC 17.7 H, RBC 4.48 L, Hgb 13.5, Hct 40.8, MCV 91.1, MCH 30.1, MCHC 33.1, RDW Std Deviation 44.6 H, RDW Coeff of Usha 13.2, Plt Count 374, MPV 10.5, Immature Gran % (Auto) 0.700, Neut % (Auto) 75.9 H, Lymph % (Auto) 11.8 L, [place] % (Auto) 10.0, Eos % (Auto) 1.2, Baso % (Auto) 0.4, Absolute Neuts (auto) 13.5 H, Absolute Lymphs (auto) 2.09, Nucleated RBC % 0, Differential Comment SCANNED, Diff Path Review Reviewed, Sodium 135 L, Potassium 3.4 L, Chloride 99, Carbon Dioxide 27.0, Anion Gap 9, BUN 9, Creatinine 0.84, Estim Creat Clear Calc 138.40, Est GFR (MDRD) Af Amer 123, Est GFR (MDRD) Non-Af 101, BUN/Creatinine Ratio 10.7, Glucose 156 H, Calcium 9.1, Phosphorus 4.0 10/28/23 06:18: WBC 16.1 H, RBC 4.45 L, Hgb 13.3, Hct 40.7, MCV 91.5, MCH 29.9, MCHC 32.7, RDW Std Deviation 44.5 H, RDW Coeff of Usha 13.3, Plt Count 442, MPV 9.9, Immature Gran % (Auto) 0.700, Neut % (Auto) 78.7 H, Lymph % (Auto) 8.7 L, M richie % (Auto) 10.2 H, Eos % (Auto) 1.1, Baso % (Auto) 0.6, Absolute Neuts (auto) 12.7 H, Absolute Lymphs (auto) 1.40, Nucleated RBC % 0, Sodium 136, Potassium 3.3 L, Chloride 98, Carbon Dioxide 29.0, Anion Gap 9, BUN 17, Creatinine 1.18, Estim Creat Clear Calc 98.52, Est GFR (MDRD) Af Amer 83, Est GFR (MDRD) Non-Af 69, BUN/Creatinine Ratio 14.4, Glucose 166 H, Calcium 8.8, Phosphorus 4.2 Radiography Diagnostic Testing: Radiology Impression Abdomen/Pelvis CT 10/27/23 08:05 IMPRESSION: Status post right hemicolectomy with postoperative changes at the operative site. Dilated small bowel loops. This may represent an ileus pattern. The colon is decompressed. There is distention of the stomach with oral contrast. Minimal amount of free intraperitoneal air is seen most likely secondary to recent intra-abdominal surgery. Bibasilar atelectasis is more prominent at the right lung base. Electronically Signed: Fabian Malcolm MD at 11:16 EDT , KUB X-Ray 10/27/23 17:10 IMPRESSION: NG tube placement with tip in the vicinity of the gastric antrum. Electronically Signed: Philippe Clay MD at 19:44 EDT , Physical Exam Const oriented x3 and no apparent distress GI soft to palpation and non-tender Inspection: Negative for abdominal distention Assessment & Plan Assessment/Plan (1) Status post right hemicolectomy: PLAN: Patient is having postoperative ileus. His white count was more elevated yesterday and antibiotics were resumed. He began to have nausea and vomiting in the afternoon and NG was placed. Today's KUB peers to have an unremarkable bowel pattern. He is not having much abdominal pain at all but he reports he did not pass any gas or bowel movements overnight. Continue NG suction and IV fluids and antibiotics. Recheck labs in the morning. Once he resumes bowel function I will resume a diet. Hemoglobin is stable. CT scan was ordered yesterday which did not reveal anastomotic leak. It only revealed some few air bubbles in the abdomen which are likely postoperative and inflammation. Patient does not report any productive cough or burning during urination. He has never had a Torrez in place. He denies any wound discharge and his incision appears clean dry and intact with no erythema. Unsure as to the cause that the ileus at this time. Tung Webster MD Pager: [facility] [address] [place] [address], [address] [place] [address] Office:
[2023-10-28 07:55] VITALS: BP 126/87; PULSE 99; RESP 18; TEMP 36.2; O2SAT 94
[2023-10-28] MEDS: Potassium Phosphate 30 MM in 0.9% Normal Saline (250mL Bag) 250 ML 42 MM IV (08:53)
[2023-10-28] MEDS: 0.9% Normal Saline (1000mL) 1,000 ML 60 ML IV (08:53)
[2023-10-28 12:05] VITALS: BP 126/80; PULSE 103; RESP 18; TEMP 36.4; O2SAT 92
[2023-10-28] MEDS: Heparin Injection (Vial) 5,000 UNIT/ML VIAL 5000 UNIT SC ×2 (13:32→20:58)
--- NOTE | 2023-10-28 13:37 | NURSING ---
IV protonix was ordered for pt. This drug is not compatible with ordered zosyn and kphos. This RN asked pt if it would be OK to insert a second IV so we could run all ordered medications. Pt refused, saying he has been poked and prodded enough. This RN will administer IV medications separately, but administration times will be delayed due to not being able to run medications at the same time.
[2023-10-28] MEDS: Pantoprazole Sodium 40 MG in 0.9% Normal Saline (100mL MB+) 100 ML 330 MG IV (15:14)
[2023-10-28 17:00] VITALS: BP 139/83; PULSE 96; RESP 18; TEMP 36.4; O2SAT 92
[2023-10-28 20:45] VITALS: BP 125/80; PULSE 88; RESP 15; TEMP 36.6; O2SAT 92
[2023-10-28 21:10] VITALS: RESP 15; O2SAT 92
[2023-10-29] MEDS: 0.9% Normal Saline (1000mL) 1,000 ML 60 ML IV ×2 (01:41→18:43)
[2023-10-29 02:02] VITALS: BP 142/90; PULSE 82; RESP 15; TEMP 36.2; O2SAT 95
[2023-10-29 03:00] VITALS: O2SAT 92
[2023-10-29 04:46] LABS: Absolute Lymphocyte Count 1.73 X10^3/uL (0.83-4.51); Absolute Neutrophil Count 9.9 X10^3/uL (2.0-7.7); Basophil# 0.08 X10^3/uL; Basophil% 0.6 % (0-1); Eosinophils% 1.5 % (0-5); Lymphocyte # 1.73 X10^3/ul (0.83-4.51); Lymphocyte % 12.6 % (19-41); Mean Corp Hgb Conc 32.5 g/dL (32-36); Mean Corpuscular Hgb 30.2 pg (27.0-32.0); Mean Corpuscular Volume 92.8 fL (80-94); Mean Platelet Vol. 9.8 fl (6.2-12.0); Monocyte# 1.69 X10^3/uL; Monocyte% 12.3 % (0-10); NRBC Flagged by Analyzer 0 % (0-5); Neutrophil # 9.93 X10^3/uL (2.7-7.7); POSITIVE DIFFERENTIAL YES; Platelet Count 476 K/mm3 (150-450); RBC Distribution Width CV 13.5 % (11.6-14.6); RBC Distribution Width SD 46.2 fl (35.1-43.9); Red Blood Count 4.31 M/mm3 (4.6-6.2); White Blood Count 13.8 K/mm3 (4.4-11.0)
[2023-10-29 04:49] LABS: Differential Indicated SCAN CRITERIA MET
[2023-10-29 05:15] LABS: Anion Gap 8 (5-15); BUN 19 mg/dL (7-18); BUN/Creat Ratio 16.2 RATIO (10-20); Chloride 105 mmol/L (98-107); Creatinine, Serum 1.17 mg/dL (0.70-1.30); EST Glomerular Filtration Rate 69 mL/min (>60); Est Glom Filt Rate - Afr Amer 84 mL/min (>60); Estimated Creatinine Clearance 99.36 ml/min; Glucose 144 mg/dL (74-106); Potassium 3.4 mmol/L (3.5-5.1); Sodium Level 140 mmol/L (136-145)
[2023-10-29 05:21] LABS: Differential Comment SCANNED; Pathologist Review May foll
[2023-10-29] MEDS: Piperacil/Tazobactam 3.375 GM in 0.9% Normal Saline (50mL MB+) 50 ML IV ×3 (05:55→21:52)
--- NOTE | 2023-10-29 06:05 | RAD_ITS ---
INDICATION: ileus EXAMINATION/TECHNIQUE: X-RAY - XR Abdomen 1 View portable. 5:55 AM. COMPARISON: Abdominal x-ray 10/28/2023 FINDINGS: AP supine view. NG tube tip in the proximal stomach with side hole in the distal esophagus. Mildly dilated small bowel. Paucity of distal bowel gas.. Sensitivity for free air limited on supine view. The lung bases are not included. RAD/Abdomen Single View (Portable) IMPRESSION: NG tube in the proximal stomach. Mildly dilated small bowel nonspecific may be consistent with ileus. Electronically Signed: Kimberli Pablo MD at 8:13 EDT ,
[2023-10-29] MEDS: Heparin Injection (Vial) 5,000 UNIT/ML VIAL 5000 UNIT SC ×3 (06:06→21:53)
--- NOTE | 2023-10-29 07:15 | PN.SURG_ITS ---
Subjective Subjective Patient seen and examined during AM rounds. He states that he is feeling much better today. He reports 3 loose bowel movements overnight and shares that he is hungry for the first time since surgery. He also notes that he is having regular gas. When asked about the overnight output from his NG tube, patient states that he believes it was minimal, however, nursing reports volume of soda and 50 mL. Patient does confess that he had a large number of ice chips. Objective Data Objective Data Vital Signs: Vital Signs Temp Pulse Resp BP Pulse Ox O2 Del Method O2 Flow Rate 97.1 F L 82 15 142/90 H 92 Room Air 2 10/29/23 02:02 10/29/23 02:02 10/29/23 02:02 10/29/23 02:02 10/29/23 03:00 10/29/23 03:00 10/25/23 22:59 Oxygen Flow Rate (L/min) 2 Oxygen Delivery Method Room Air Weight: 244 lb 12.785 oz Body Mass Index (BMI) 30.6 Intake & Output: Intake and Output for Last 24 Hours 10/27/23 10/28/23 10/29/23 23:59 23:59 23:59 Intake Total 180 / 220 1673 / 1673 1090 / 1090 Output Total 1850 / 2550 2800 / 2800 250 / 250 Balance -1670 / -2330 -1127 / -1127 840 / 840 Lab / Micro Data 10/29/23 04:00 10/29/23 04:00 Labs: Laboratory Results - last 24 hr 10/28/23 06:18: Differential Comment COMMENT, Diff Path Review September10/29/23 04:00: WBC 13.8 H, RBC 4.31 L, Hgb 13.0, Hct 40.0, MCV 92.8, MCH 30.2, MCHC 32.5, RDW Std Deviation 46.2 H, RDW Coeff of Usha 13.5, Plt Count 476 H, MPV 9.8, Immature Gran % (Auto) 1.000 H, Neut % (Auto) 72.0 H, Lymph % (Auto) 12.6 L , [place] % (Auto) 12.3 H, Eos % (Auto) 1.5, Baso % (Auto) 0.6, Absolute Neuts (auto) 9.9 H, Absolute Lymphs (auto) 1.73, Nucleated RBC % 0, Differential Comment SCANNED, Diff Path Review May foll, Sodium 140, Potassium 3.4 L, Chloride 105, Carbon Dioxide 27.0, Anion Gap 8, BUN 19 H, Creatinine 1.17, Estim Creat Clear Calc 99.36, Est GFR (MDRD) Af Amer 84, Est GFR (MDRD) Non-Af 69, BUN/Creatinine Ratio 16.2, Glucose 144 H, Calcium 9.0 Radiography Diagnostic Testing: Radiology Impression KUB X-Ray 10/28/23 05:28 IMPRESSION: The tip of the nasogastric tube is at the gastroesophageal junction. Electronically Signed: Fabian Malcolm MD at 8:18 EDT , KUB X-Ray 10/28/23 05:50 IMPRESSION: The tip of nasogastric tube is in the first portion of the duodenum. Electronically Signed: Fabian Malcolm MD at 8:19 EDT , Physical Exam Const oriented x3 and no apparent distress Resp normal respiratory effort GI GI Narrative: Thin mild bilious output from nasogastric tube, abdomen is mildly distended, soft, minimally tender to palpation over the right abdominal quadrants. Incisions remain appropriate?appearing beneath Steri-Strips and there is no drainage. Assessment & Plan Assessment/Plan (1) Status post right hemicolectomy: PLAN: Patient is postoperative day 5 from laparoscopic hand-assisted right hemicolectomy with primary anastomosis. He appears to be resolving his postoperative ileus, however, it is difficult to determine his gastric output given the confounding volume of ice chips. The character of his output does remain somewhat bilious. Thus, given this lack of certainty I am trying for a more objective a means of estimating his output through a clamp trial today. Patient was counseled on his increased aspiration risk during this time and warned to only find himself in a chair or walking. Nursing was also instructed on when to reconnect to suction and to alert me as to the volume out. If patient is less than 100 MLS and not experiencing any nausea at the conclusion of his clamp trial I will plan to pull his nasogastric tube and reinitiated diet. His white count has down trended from yesterday while remaining on empiric antibiotic coverage but it is still not within normal limits. Patient with mild hypokalemia?replaced today. Clint Schwab MD General Surgery Endocrine Surgery Pager: [facility] [address] [place] [address], [address] [place] [address] Office: [phone] Charges/Coding Visit Charges Inpatient E&M: 91914 Init Hosp L2
[2023-10-29 07:46] VITALS: BP 139/85; PULSE 85; RESP 18; TEMP 36.4; O2SAT 95
[2023-10-29] MEDS: Pantoprazole Sodium 40 MG in 0.9% Normal Saline (100mL MB+) 100 ML 330 MG IV (08:17)
[2023-10-29] MEDS: Potassium Chloride 10mEq/100mL 10 MEQ/100 ML IV.SOLN. 100 MEQ IV BOLUS ×4 (09:20→12:59)
[2023-10-29 14:46] VITALS: BP 152/93; PULSE 80; RESP 18; TEMP 36.1; O2SAT 98
[2023-10-29] MEDS: Phenol/Sodium Phenolate 180ML 3 SPRAY MUCOUS MEM (15:41)
[2023-10-29] MEDS: Acetaminophen 500 MG Tablet 1000 MG PO (17:57)
[2023-10-29 19:59] VITALS: BP 140/90; PULSE 94; RESP 18; TEMP 36.5; O2SAT 96
[2023-10-29] MEDS: Docusate Sodium 100 MG Capsule PO (21:52)
[2023-10-29] MEDS: Atorvastatin Calcium 10 MG Tablet PO (21:52)
[2023-10-30] MEDS: Acetaminophen 500 MG Tablet 1000 MG PO ×4 (00:54→18:17)
[2023-10-30 00:55] VITALS: BP 123/87; PULSE 76; RESP 18; TEMP 36.3; O2SAT 93
[2023-10-30 06:22] LABS: Absolute Lymphocyte Count 2.15 X10^3/uL (0.83-4.51); Absolute Neutrophil Count 8.3 X10^3/uL (2.0-7.7); Basophil# 0.11 X10^3/uL; Basophil% 0.9 % (0-1); Eosinophil# 0.31 X10^3/uL; Eosinophils% 2.5 % (0-5); Hematocrit 37.3 % (40-54); Hemoglobin 11.8 g/dL (13.0-16.5); Lymphocyte # 2.15 X10^3/ul (0.83-4.51); Lymphocyte % 17.4 % (19-41); Mean Corp Hgb Conc 31.6 g/dL (32-36); Mean Corpuscular Hgb 29.9 pg (27.0-32.0); Mean Corpuscular Volume 94.4 fL (80-94); Mean Platelet Vol. 9.9 fl (6.2-12.0); Monocyte# 1.28 X10^3/uL; Monocyte% 10.4 % (0-10); NRBC Flagged by Analyzer 0 % (0-5); Neutrophil % 67.3 % (47-70); Platelet Count 452 K/mm3 (150-450); RBC Distribution Width CV 13.2 % (11.6-14.6); RBC Distribution Width SD 45.8 fl (35.1-43.9); Red Blood Count 3.95 M/mm3 (4.6-6.2); White Blood Count 12.3 K/mm3 (4.4-11.0)
[2023-10-30 06:23] VITALS: BP 130/83; PULSE 72; RESP 16; TEMP 36.3; O2SAT 97
[2023-10-30] MEDS: Heparin Injection (Vial) 5,000 UNIT/ML VIAL 5000 UNIT SC ×3 (06:26→22:07)
[2023-10-30] MEDS: Piperacil/Tazobactam 3.375 GM in 0.9% Normal Saline (50mL MB+) 50 ML IV ×3 (06:29→22:07)
[2023-10-30 06:51] LABS: Anion Gap 7 (5-15); BUN 18 mg/dL (7-18); BUN/Creat Ratio 15.5 RATIO (10-20); Calcium,Total 8.3 mg/dL (8.5-10.1); Chloride 107 mmol/L (98-107); Creatinine, Serum 1.16 mg/dL (0.70-1.30); EST Glomerular Filtration Rate 70 mL/min (>60); Est Glom Filt Rate - Afr Amer 85 mL/min (>60); Estimated Creatinine Clearance 100.22 ml/min; Glucose 121 mg/dL (74-106); Magnesium 2.8 mg/dL (1.6-2.6); Potassium 4.2 mmol/L (3.5-5.1); Sodium Level 139 mmol/L (136-145)
[2023-10-30 06:59] LABS: Phosphorus 4.2 mg/dL (2.5-4.9)
--- NOTE | 2023-10-30 08:08 | PCM.PN.SRG ---
Subjective Subjective Patient seen and examined during AM rounds. He is found resting out of bed in the chair. He states that he feels very well. He denies any difficulty with his clear liquid diet. He is on an ongoing flatus and bowel movements. He describes his pain is rated a 1 or 2 out of 10. He is not requiring any additional narcotic pain medication. He did shower yesterday and states this felt great. Objective Data Objective Data Vital Signs: Vital Signs Temp Pulse Resp BP Pulse Ox O2 Del Method O2 Flow Rate 97.4 F L 72 16 130/83 H 97 Room Air 2 10/30/23 06:23 10/30/23 06:23 10/30/23 06:23 10/30/23 06:23 10/30/23 06:23 10/30/23 06:23 10/25/23 22:59 Oxygen Flow Rate (L/min) 2 Oxygen Delivery Method Room Air Weight: 244 lb 12.785 oz Body Mass Index (BMI) 30.6 Intake & Output: Intake and Output for Last 24 Hours 10/28/23 10/29/23 10/30/23 23:59 23:59 23:59 Intake Total 1673 / 1673 3832 / 3832 650 / 650 Output Total 2800 / 2800 1150 / 1150 Balance -1127 / -1127 2682 / 2682 650 / 650 Lab / Micro Data 10/30/23 04:55 10/30/23 04:55 Labs: Laboratory Results - last 24 hr 10/30/23 04:55: WBC 12.3 H, RBC 3.95 L, Hgb 11.8 L, Hct 37.3 L, MCV 94.4 H, MCH 29.9, MCHC 31.6 L, RDW Std Deviation 45.8 H, RDW Coeff of Usha 13.2, Plt Count 452 H, MPV 9.9, Immature Gran % (Auto) 1.500 H, Neut % (Auto) 67.3, Lymph % (Auto) 17.4 L, [place]duff[place] % (Auto) 10.4 H, Eos % (Auto) 2.5, Baso % (Auto) 0.9, Absolute Neuts (auto) 8.3 H, Absolute Lymphs (auto) 2.15, Nucleated RBC % 0, Sodium 139, Potassium 4.2, Chloride 107, Carbon Dioxide 25.0, Anion Gap 7, BUN 18, Creatinine 1.16, Estim Creat Clear Calc 100.22, Est GFR (MDRD) Af Amer 85, Est GFR (MDRD) Non-Af 70, BUN/Creatinine Ratio 15.5, Glucose 121 H, Calcium 8.3 L, Phosphorus 4.2, Magnesium 2.8 H Physical Exam Const oriented x3 and no apparent distress Resp normal respiratory effort GI GI Narrative: Mildly distended, operative sites with Steri-Strips still clean dry and intact, soft, nontender to palpation Assessment & Plan Assessment/Plan (1) Status post right hemicolectomy: PLAN: Patient is postoperative day 6 from laparoscopic hand-assisted right hemicolectomy with primary anastomosis. Patient appears to have resolved his postoperative ileus and is having ongoing regular bowel function while tolerating a clear liquid diet after his NG tube was removed yesterday. Thus I will plan to advance to a full liquid diet today and monitor for tolerance. If this is tolerated for lunch may advance again for dinner so that he is prepared for hopeful discharge tomorrow. His white count has down trended further from yesterday while remaining on empiric antibiotic coverage but it is still not within normal limits. Hypokalemia resolved. Clint Schwab MD General Surgery Endocrine Surgery Pager: [facility] [address] [place] [address], [address] [place] [address] Office: [phone] Charges/Coding Visit Charges Inpatient E&M: 87046 Subs Hosp L2
[2023-10-30 08:42] VITALS: BP 137/91; PULSE 72; RESP 18; TEMP 36.2; O2SAT 97
[2023-10-30] MEDS: Docusate Sodium 100 MG Capsule PO (08:59)
[2023-10-30] MEDS: Celecoxib 200 MG Capsule PO (08:59)
[2023-10-30] MEDS: Pantoprazole Sodium 40 MG in 0.9% Normal Saline (100mL MB+) 100 ML 330 MG IV (09:44)
[2023-10-30 14:00] VITALS: BP 128/84; PULSE 71; RESP 18; TEMP 36.6; O2SAT 97
[2023-10-30] MEDS: 0.9% Normal Saline (1000mL) 1,000 ML 25 ML IV (14:40)
[2023-10-30 19:41] VITALS: BP 126/76; PULSE 74; RESP 18; TEMP 36.3; O2SAT 97
[2023-10-30] MEDS: Atorvastatin Calcium 10 MG Tablet PO (22:07)
[2023-10-31 00:26] VITALS: BP 124/75; PULSE 76; RESP 18; TEMP 36.6; O2SAT 94
[2023-10-31] MEDS: Acetaminophen 500 MG Tablet 1000 MG PO ×2 (00:30→05:51)
[2023-10-31 05:46] VITALS: BP 138/88; PULSE 78; RESP 18; TEMP 36.2; O2SAT 95
[2023-10-31] MEDS: Piperacil/Tazobactam 3.375 GM in 0.9% Normal Saline (50mL MB+) 50 ML IV (05:50)
[2023-10-31] MEDS: Heparin Injection (Vial) 5,000 UNIT/ML VIAL 5000 UNIT SC (05:51)
[2023-10-31 06:03] LABS: Absolute Lymphocyte Count 1.82 X10^3/uL (0.83-4.51); Absolute Neutrophil Count 7.6 X10^3/uL (2.0-7.7); Basophil# 0.08 X10^3/uL; Basophil% 0.7 % (0-1); Eosinophil# 0.26 X10^3/uL; Eosinophils% 2.4 % (0-5); Hematocrit 39.6 % (40-54); Hemoglobin 12.7 g/dL (13.0-16.5); Lymphocyte # 1.82 X10^3/ul (0.83-4.51); Lymphocyte % 16.5 % (19-41); Mean Corp Hgb Conc 32.1 g/dL (32-36); Mean Corpuscular Hgb 29.9 pg (27.0-32.0); Mean Corpuscular Volume 93.2 fL (80-94); Mean Platelet Vol. 9.4 fl (6.2-12.0); Monocyte% 9.1 % (0-10); NRBC Flagged by Analyzer 0 % (0-5); Neutrophil # 7.63 X10^3/uL (2.7-7.7); Neutrophil % 69.2 % (47-70); Platelet Count 484 K/mm3 (150-450); RBC Distribution Width CV 13.2 % (11.6-14.6); RBC Distribution Width SD 44.9 fl (35.1-43.9); Red Blood Count 4.25 M/mm3 (4.6-6.2)
[2023-10-31 06:16] LABS: Anion Gap 4 (5-15); BUN 13 mg/dL (7-18); Calcium,Total 8.7 mg/dL (8.5-10.1); Chloride 108 mmol/L (98-107); Creatinine, Serum 1.08 mg/dL (0.70-1.30); EST Glomerular Filtration Rate 76 mL/min (>60); Est Glom Filt Rate - Afr Amer 92 mL/min (>60); Estimated Creatinine Clearance 107.64 ml/min; Glucose 157 mg/dL (74-106); Potassium 4.4 mmol/L (3.5-5.1); Sodium Level 138 mmol/L (136-145)
--- NOTE | 2023-10-31 06:56 | PCM.PN.SRG ---
Subjective Subjective The patient reports he is passing gas and having bowel movements and very comfortable with no pain medication. Denies nausea or vomiting. He is tolerating transitional diet. Objective Data Objective Data Vital Signs: Vital Signs Temp Pulse Resp BP Pulse Ox O2 Del Method O2 Flow Rate 97.1 F L 78 18 138/88 H 95 Room Air 2 10/31/23 05:46 10/31/23 05:46 10/31/23 05:46 10/31/23 05:46 10/31/23 05:46 10/31/23 05:46 10/25/23 22:59 Oxygen Flow Rate (L/min) 2 Oxygen Delivery Method Room Air Weight: 244 lb 12.785 oz Body Mass Index (BMI) 30.6 Intake & Output: Intake and Output for Last 24 Hours 10/29/23 10/30/23 10/31/23 23:59 23:59 23:59 Intake Total 3832 / 3832 3278.42 / 3278.42 1150 / 1150 Output Total 1150 / 1150 Balance 2682 / 2682 3278.42 / 3278.42 1150 / 1150 Lab / Micro Data 10/31/23 05:45 10/31/23 05:46 Labs: Laboratory Results - last 24 hr 10/30/23 04:55: Phosphorus 4.2 10/31/23 05:45: WBC 11.0, RBC 4.25 L, Hgb 12.7 L, Hct 39.6 L, MCV 93.2, MCH 29.9, MCHC 32.1, RDW Std Deviation 44.9 H, RDW Coeff of Usha 13.2, Plt Count 484 H, MPV 9.4, Immature Gran % (Auto) 2.100 H, Neut % (Auto) 69.2, Lymph % (Auto) 16.5 L, [place] % (Auto) 9.1, Eos % (Auto) 2.4, Baso % (Auto) 0.7, Absolute Neuts (auto) 7.6, Absolute Lymphs (auto) 1.82, Nucleated RBC % 0 10/31/23 05:46: Sodium 138, Potassium 4.4, Chloride 108 H, Carbon Dioxide 26.0, Anion Gap 4 L, BUN 13, Creatinine 1.08, Estim Creat Clear Calc 107.64, Est GFR (MDRD) Af Amer 92, Est GFR (MDRD) Non-Af 76, BUN/Creatinine Ratio 12.0, Glucose 157 H, Calcium 8.7 Physical Exam Const oriented x3 and no apparent distress Resp normal respiratory effort GI soft to palpation and non-tender Assessment & Plan Assessment/Plan (1) Status post right hemicolectomy: PLAN: The patient's ileus seems to have resolved. He is passing flatus. He is tolerating a diet. I will discharge him home today. I will stop his antibiotics as his white count is coming down and there is no source of infection that we can identify. Patient will follow-up with me and he was given postoperative instructions. Tung Webster MD Pager: [facility] [address] [place] [address] [address] [place] [address] Office:
--- NOTE | 2023-10-31 06:57 | PCM.DC.SUM ---
Providers Date of Admission: 10/24/23 Primary Care Physician: Dr. Elly Bryson MD Reason For Visit: Laparoscopic, Right ERAS Dario Colec Diagnosis Discharge Diagnosis (1) Status post right hemicolectomy: Status: Acute Code(s): Z90.49 - Acquired absence of other specified parts of digestive tract Plan: The patient's ileus seems to have resolved. He is passing flatus. He is tolerating a diet. I will discharge him home today. I will stop his antibiotics as his white count is coming down and there is no source of infection that we can identify. Patient will follow-up with me and he was given postoperative instructions. Tung Webster MD Pager: [facility] [address] [place] [address], [address] [place] [address] Office: Medications at Discharge Home Medications atorvastatin 10 mg tablet (Lipitor) 10 mg PO QHS HLD #30 tabs 08/04/23 ibuprofen 200 mg tablet 400 mg PO Q6H PRN PRN pain 08/09/23 [id number] 300 mcg-K 60 mcg-lycop 600 mcg-lutein 300 mcg tablet (Century Men 50 Plus) 1 tab PO DAILY SUPPLEMENT 09/02/23 metformin 500 mg tablet 500 mg PO DAILY DIABETES #90 tabs 09/29/23 Hospital Course Operations colectomy Procedures None Summary of Care Provided Hospital Course: The patient was admitted after routine right hemicolectomy for a large cecal polyp. Postoperatively the patient was doing well for 2 days but then started having nausea and vomiting. NG was placed. Patient had a postoperative ileus due to surgery. No underlying cause was identified. Patient was placed back on antibiotics and NG was placed. After 2 or 3 more days the NG was removed and the patient started having bowel function and diet was resumed. After tolerating regular diet and white count decreasing he will be discharged home today. Weight / BMI Weight Weight: 244 lb 12.785 oz Body Mass Index (BMI) 30.6 ABG / Lab / Microbiology Data 10/31/23 05:45 10/31/23 05:46 Laboratory: Laboratory Results - last 24 hr 10/30/23 04:55: Phosphorus 4.2 10/31/23 05:45: WBC 11.0, RBC 4.25 L, Hgb 12.7 L, Hct 39.6 L, MCV 93.2, MCH 29.9, MCHC 32.1, RDW Std Deviation 44.9 H, RDW Coeff of Usha 13.2, Plt Count 484 H, MPV 9.4, Immature Gran % (Auto) 2.100 H, Neut % (Auto) 69.2, Lymph % (Auto) 16.5 L, Douglas % (Auto) 9.1, Eos % (Auto) 2.4, Baso % (Auto) 0.7, Absolute Neuts (auto) 7.6, Absolute Lymphs (auto) 1.82, Nucleated RBC % 0 10/31/23 05:46: Sodium 138, Potassium 4.4, Chloride 108 H, Carbon Dioxide 26.0, Anion Gap 4 L, BUN 13, Creatinine 1.08, Estim Creat Clear Calc 107.64, Est GFR (MDRD) Af Amer 92, Est GFR (MDRD) Non-Af 76, BUN/Creatinine Ratio 12.0, Glucose 157 H, Calcium 8.7 D/C Instructions Discharge Diet: No restrictions Discharge Activity: May Drive and May Shower Lifting Restrictions: 15 pounds for 6 weeks Additional Activity Instructions: Alternate ibuprofen and Tylenol for any pain Call your doctor if your incision/area has: Continuous Slow Oozing, Sudden Increased Bleeding, Increased Pain/ Swelling, Increased Redness, Foul Smelling Discharge and Swelling at the incision site Call your doctor if you observe: Fever of 101 or Higher and Inability to have a bowel movement Remove Dressing in: 1 week (Remove Steri-Strips in 1 week) Cleanse incision/area with: Soap & Water Please Follow Up With: Tung Webster MD When: Please call to schedule 2 week follow up appointment. [phone] Meaningful Use Info Meaningful Use Meaningful Use Diagnoses (Choose all that apply): None applicable Ischemic Stroke Statin Dosing Therapy Reference: STATIN DOSE THERAPY REFERENCE: * Patients > 75 years receive moderate or high dose statin therapy. * Patients 75 years or YOUNGER should receive HIGH intensity statin dose unless contraindicated. You will be required to document reason for non-treatment if statin daily dose does not meet guidelines. HIGH DOSE STATIN THERAPY DAILY Atorvastatin > than or = to 40 mg Rosuvastatin > than or = to 20 mg Amlodipine + Atorvastatin > than or = to 2.5/40 mg Ezetimibe + Simvastatin 10/80 mg Simvastatin 80mg Discharge Plan Admission Admit Date/Time: 10/24/23 09:49 Attending Provider: Tung Webster Primary Care Provider: Elly Bryson Consulting Providers: Asa Rocha Discharge Orders/Prescriptions Prescriptions: Continued ibuprofen 200 mg tablet 400 mg PO Q6H PRN PRN (Reason: pain) Century Men 50 Plus [id number] mcg tablet 1 tab PO DAILY atorvastatin [Lipitor] 10 mg tablet 10 mg PO QHS Qty: 30 5RF metformin 500 mg tablet 500 mg PO DAILY Qty: 90 0RF Discontinued metronidazole 500 mg tablet 500 mg PO .COMPLEX Qty: 6 0RF Rx Instructions: Take 2 (two) tablets at 1300, 1500, 2300 neomycin 500 mg tablet 500 mg PO .COMPLEX Qty: 6 0RF Rx Instructions: Take two (2) 500 mg tablets PO at 1300, 1500, 2300 Other Ambulatory Orders: 12 Lead EKG (Routine) Timeframe: 20231019 Location: None Selected Ordered By: Dr. Asa Rocha Referrals / Follow Up: Elly Bryson MD [Primary Care Provider] - Disposition Disposition (needs filled in before D/C Order can be placed): Home, Self Care
[2023-10-31 08:08] VITALS: BP 124/84; PULSE 66; RESP 18; TEMP 36.4; O2SAT 98
[2023-10-31] MEDS: Docusate Sodium 100 MG Capsule PO (08:11)
[2023-10-31] MEDS: Celecoxib 200 MG Capsule PO (08:12)
--- NOTE | 2023-10-31 08:46 | PHA.DC.MR.R ---
Pharmacy [place] Med Reconciliation Pharmacy Service has performed discharge medication reconciliation for this patient. The patient's discharge medication list was reviewed for discrepancies and discrepancies were resolved. Medications at Discharge Home Medications atorvastatin 10 mg tablet (Lipitor) 10 mg PO QHS HLD #30 tabs 08/04/23 ibuprofen 200 mg tablet 400 mg PO Q6H PRN PRN pain 08/09/23 [id number]-pr-[id number] 300 mcg-K 60 mcg-lycop 600 mcg-lutein 300 mcg tablet (Century Men 50 Plus) 1 tab PO DAILY SUPPLEMENT 09/02/23 metformin 500 mg tablet 500 mg PO DAILY DIABETES #90 tabs 09/29/23
--- NOTE | 2023-10-31 09:12 | CASEMGMT ---
RN CM into pt room, introduced self and role at [facility]. Pt sitting up in chair in no distress. Pt states he is feeling much better and ready to go home. States his is picking him up and she is a nurse. Pt states needs a note for work stating ok to return to work. Informed charge nurse. Pt denies any other needs at this time.
[2023-10-31 16:17] LABS: Pathologist Review Reviewed
== END 2023-10-31 10:30 | disposition home or self-care (01) | DRG 330 ==
LOC: ACINP 09:50 → MS3 15:03
PROVIDERS: Anesthesiology; Surgery; Admitting Provider Surgery; PCP Internal Medicine; Referring Provider Surgery; Visit Provider Surgery
PROC: 0DTF0ZZ Resection of Right Large Intestine, Open Approach (ICD-10-PCS; CPT 44205; principal; 2023-10-24 11:45)
DX: C18.0 Malignant neoplasm of cecum (principal); K56.7 Ileus, unspecified; K91.89 Other postprocedural complications and disorders of digestive system; E11.9 Type 2 diabetes mellitus without complications; J44.9 Chronic obstructive pulmonary disease, unspecified; D01.0 Carcinoma in situ of colon; K42.9 Umbilical hernia without obstruction or gangrene; K63.5 Polyp of colon; K30 Functional dyspepsia; E87.6 Hypokalemia; Z87.891 Personal history of nicotine dependence; Z80.0 Family history of malignant neoplasm of digestive organs; Z53.31 Laparoscopic surgical procedure converted to open procedure; Z79.84 Long term (current) use of oral hypoglycemic drugs
CPT/HCPCS: 36415; 74018; 74177; 80048; 81002; 82962; 83735; 84100; 85014; 85018; 85025; 85027; 85610; 88309; 88341; 88342; 93005; 94668; 94762; J7030; J7050; J7120; Q9967; C1760; J2405; J3475

== ENCOUNTER 2024-09-11 07:38 | Day surgery (SDC) | payer OTHER, SELFPAY ==
--- NOTE | 2024-09-07 11:30 | PAT.ANESEVAL ---
Pre-Assessment Diagnosis/Proposed Procedure Planned Operative Procedure(s): CSCOPE Anesthesia History Anesthesia History - digital marketing consultant: Anesthesia History - digital marketing consultant Hx Hospitalization Yes: 10/23/24 HEMICOLECTOMY 09/07/24 11:10 Any Problems With Anesthesia No 09/07/24 11:10 Cholinesterase deficiency No 09/07/24 11:10 You/Your Family Experience No 09/07/24 11:10 fever (hyperthermia) with Relationship Recent Exposure to Contagious No 09/07/23 13:07 Disease Does patient have nerve No 09/07/24 11:10 stimulator Patient instructed to have device shut off --Does patient have Pacemaker or ICD? When Was Last Pacemaker Check QUESTION #4 FULL TEXT: You/Your Family Experience fever (hyperthermia) with Anesthesia Last Oral Intake Last Oral intake: Last Oral Intake NPO since Meds taken in AM with sips of water? Meds patient instructed to take am of surgery PONV PONV - digital marketing consultant: PONV - digital marketing consultant Female No 09/07/24 11:10 HX of Motion Sickness No 09/07/24 11:10 HX of N/V After Surgery No 09/07/24 11:10 Non-Smoker Yes 09/07/24 11:10 Duration of Surgery greater No 09/07/24 11:10 than 60 minutes Number of Risk Factors 1 09/07/24 11:10 PONV Score Low Risk 09/07/24 11:10 Height & Weight Height & Weight: Anesthesia: Height & Weight Height 6 ft 3 in 07/03/24 08:55 Respiratory Assessment Respiratory Assessment - digital marketing consultant: Respiratory Tract Infection Hx - digital marketing consultant Hx Respiratory Tract Infection No 09/07/24 11:10 STOP Sleep Apnea STOP Sleep Apnea - digital marketing consultant: STOP Sleep Apnea - digital marketing consultant Hx Hypertension No 09/07/24 11:10 Hx Sleep Apnea Yes 09/07/24 11:10 CPAP Yes: NONCOMPLIANT 09/07/24 11:10 BIPAP No 09/07/24 11:10 Do you snore loudly (louder than talking or can be heard Do you often feel tired/ fatigued/ sleepy during daytime? Has anyone observed you stop breathing during sleep? STOP Results Positive 09/07/24 11:10 QUESTION #5 FULL TEXT : Do you snore loudly (louder than talking or can be heard through closed doors)? 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 Specify any problems Hx of Preganancy in last 3 N/A 09/07/24 11:10 Months Nurse Filling Out Transfusion NBUCHER 09/07/24 11:10 & Questions: Date: 09/07/24 09/07/24 11:10 Time: 11:11 09/07/24 11:10 Patient unable to answer at this time (ie. confused, unrespo /Reproduction History /Reproductive History - digital marketing consultant: /Reproductive Hx- digital marketing consultant Hx Now Gestational Age (in weeks): EDC: Hx Hx Para Hx Section SAB No 09/07/24 11:10 PFS Medical History (Updated 09/07/24 @ 11:14 by Glenys Rose) Cancer Colon cancer Loss of hearing Wears contact lenses Alcohol use Restless legs Back pain Injury of head and neck Dietary restriction History of ulceration Heartburn Former smoker CPAP (continuous positive airway pressure) dependence COPD (chronic obstructive pulmonary disease) Shortness of breath on exertion Leg cramps History of edema History of stress test History of irregular heartbeat Diabetes Family hx of colon cancer Gout Bone fracture Home Medications ?Medication ?Instructions ?Recorded ?Last Taken ?Type ibuprofen 200 mg tablet 400 mg PO Q6H PRN PRN pain 08/09/23 10/22/23 History [id number]-cv-bqxoj 300 mcg-K 60 1 tab PO DAILY SUPPLEMENT 09/02/23 10/22/23 History mcg-lycop 600 mcg-lutein 300 mcg tablet (Century Men 50 Plus) capsaicin 0.033 % topical cream 1 applic topical TID PRN pain 05/03/24 Unknown Rx #56.6 grams metformin 500 mg tablet 500 mg PO DAILY DIABETES #90 tabs 06/25/24 Unknown Rx atorvastatin 10 mg tablet (Lipitor) 10 mg PO QHS HLD #30 tabs 08/06/24 Unknown Rx Allergy/AdvReac Type Severity Reaction Status Date / Time No Known Allergies Allergy Verified 09/07/24 11:09 Family History Mother Arthritis Diabetes Hypertension Grandmother Arthritis High cholesterol Hypertension Grandfather Colon cancer Surgical History S/P left hemicolectomy (10/24/23) Status post right hemicolectomy History of surgical procedure Hx of neck surgery Social History household members: spouse current occupational status: employed 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 Sinus rhythm with PSVC's Stress test pertinent findings: August 02, 2022. Patient achieved METS of 10.1. Ejection fraction is 60%. Increased to 75% with exercise. Normal exercise stress echo at a high workload with no wall motion abnormalities of ischemia. Recommendation Anesthesia Recommendation Anesthesia recommendation: OPTIMIZED for anesthesia
[2024-09-11] VITALS (8 sets, daily range): BP systolic 110–141; BP diastolic 73–91; PULSE 82–92; RESP 16–18; TEMP 36.3–37.2; O2SAT 95–98; BMI 31.4
[2024-09-11] MEDS: Lactated Ringers 1,000 ML 15 ML IV (08:03)
--- NOTE | 2024-09-11 08:06 | PCM.PRE.AN2 ---
ASA Classification* ASA Classification ASA Classification: 2 Assessment & Plan Anesthesia* Anesthesia Assessment Anesthesia Assessment: Discussed sedation and/or anesthesia options, risks, benefits, and alternatives with patient/parents/legal guardian/POA. Questions invited. The patient/parents/legal guardian/POA seems to understand and agrees to proceed with anesthesia plan. Reviewed the physical assessment, medical history, allergy history and patient home medications list prior to surgery/procedure/anesthetic and documented any changes. Performed airway and anesthesia risk assessments. Anesthesia Type Anesthesia Type: MAC History Source History Obtained from:: Patient and Chart Anesthesia Focused Assessment* Temperature: 97.8 F Pulse Rate: 92 Blood Pressure: 141/91 Respiratory Rate: 16 Pulse Ox: 98 Oxygen Delivery Method: Room Air Airway Assessment Mouth opens: >3 cm Mallampati Score: III Teeth Condition: Chipped/Broken (Patient has a couple chipped teeth. Rest of the teeth are tight.) Neck Range of motion (ROM): Full ROM Focused Labs Anesthesia Preop lab: CBC WBC 11.0 K/mm3 (4.4-11.0) 10/31/23 05:45 10/31/23 RBC 4.25 M/mm3 (4.6-6.2) L 10/31/23 05:45 10/31/23 Hgb 12.7 g/dL (13.0-16.5) L 10/31/23 05:45 10/31/23 Hct 39.6 % (40-54) L 10/31/23 05:45 10/31/23 Plt Count 484 K/mm3 (150-450) H 10/31/23 05:45 10/31/23 CHEMISTRY Potassium 4.4 mmol/L (3.5-5.1) 10/31/23 05:46 10/31/23 Sodium 138 mmol/L (136-145) 10/31/23 05:46 10/31/23 Magnesium 2.8 mg/dL (1.6-2.6) H 10/30/23 04:55 10/30/23 Phosphorus 4.2 mg/dL (2.5-4.9) 10/30/23 04:55 10/30/23 BUN 13 mg/dL (7-18) 10/31/23 05:46 10/31/23 Creatinine 1.08 mg/dL (0.70-1.30) 10/31/23 05:46 10/31/23 Glucose 157 mg/dL (74-106) H 10/31/23 05:46 10/31/23 POC Glucose 168 mg/dL (74-106) H 10/27/23 06:06 10/27/23 COAG PT 15.9 SECONDS (11.7-14.9) H 10/24/23 15:40 10/24/23 Pre-Assessment Diagnosis/Proposed Procedure Planned Operative Procedure(s): CSCOPE Anesthesia History Anesthesia History - senior business development analyst: Anesthesia History - senior business development analyst Hx Hospitalization Yes: 10/23/24 HEMICOLECTOMY 09/07/24 11:10 Any Problems With Anesthesia No 09/07/24 11:10 Cholinesterase deficiency No 09/07/24 11:10 You/Your Family Experience No 09/07/24 11:10 fever (hyperthermia) with Relationship Recent Exposure to Contagious No 09/11/24 07:58 Disease Does patient have nerve No 09/07/24 11:10 stimulator Patient instructed to have device shut off --Does patient have Pacemaker No 09/11/24 07:58 or ICD? When Was Last Pacemaker Check QUESTION #4 FULL TEXT: You/Your Family Experience fever (hyperthermia) with Anesthesia Last Oral Intake Last Oral intake: Last Oral Intake NPO since 04:45 09/11/24 07:58 Meds taken in AM with sips of water? Meds patient instructed to take am of surgery Any additional information?: Yes NPO since: 04:45 (Patient finished prep at 4:45 AM.) PONV PONV - senior business development analyst: PONV - senior business development analyst Female No 09/07/24 11:10 HX of Motion Sickness No 09/07/24 11:10 HX of N/V After Surgery No 09/07/24 11:10 Non-Smoker Yes 09/07/24 11:10 Duration of Surgery greater No 09/07/24 11:10 than 60 minutes Number of Risk Factors 1 09/07/24 11:10 PONV Score Low Risk 09/07/24 11:10 Height & Weight Height & Weight: Anesthesia: Height & Weight Height 6 ft 3 in 09/11/24 07:58 Weight: 113.9 kg 09/11/24 07:58 Body Mass Index (BMI) 31.4 09/11/24 07:58 Respiratory Assessment Respiratory Assessment - senior business development analyst: Respiratory Tract Infection Hx - senior business development analyst Hx Respiratory Tract Infection No 09/07/24 11:10 STOP Sleep Apnea STOP Sleep Apnea - senior business development analyst: STOP Sleep Apnea - senior business development analyst Hx Hypertension No 09/07/24 11:10 Hx Sleep Apnea Yes 09/07/24 11:10 CPAP Yes: NONCOMPLIANT 09/07/24 11:10 BIPAP No 09/07/24 11:10 Do you snore loudly (louder than talking or can be heard Do you often feel tired/ fatigued/ sleepy during daytime? Has anyone observed you stop breathing during sleep? STOP Results Positive 09/07/24 11:10 QUESTION #5 FULL TEXT : Do you snore loudly (louder than talking or can be heard through closed doors)? 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 Specify any problems Hx of Preganancy in last 3 N/A 09/07/24 11:10 Months Nurse Filling Out Transfusion NBUCHER 09/07/24 11:10 & Questions: Date: 09/07/24 09/07/24 11:10 Time: 11:11 09/07/24 11:10 Patient unable to answer at this time (ie. confused, unrespo /Reproduction History /Reproductive History - senior business development analyst: /Reproductive Hx- senior business development analyst Hx Now Gestational Age (in weeks): EDC: Hx Hx Para Hx Section SAB No 09/07/24 11:10 Active Medications Active Medications: Current Medications Generic Name Dose Route Start Last Admin Trade Name Freq PRN Reason Stop Dose Admin Lactated Ringer's 1,000 mls @ 15 mls/hr 09/11/24 08:00 IV .Q48H MAGNO PFSH Medical History Cancer Colon cancer Loss of hearing Wears contact lenses Alcohol use Restless legs Back pain Injury of head and neck Dietary restriction History of ulceration Heartburn Former smoker CPAP (continuous positive airway pressure) dependence COPD (chronic obstructive pulmonary disease) Shortness of breath on exertion Leg cramps History of edema History of stress test History of irregular heartbeat Diabetes Family hx of colon cancer Gout Bone fracture Home Medications ?Medication ?Instructions ?Recorded ?Last Taken ?Type ibuprofen 200 mg tablet 400 mg PO Q6H PRN PRN pain 08/09/23 10/22/23 History [id number]-dv-dkosf 300 mcg-K 60 1 tab PO DAILY SUPPLEMENT 09/02/23 10/22/23 History mcg-lycop 600 mcg-lutein 300 mcg tablet (Century Men 50 Plus) capsaicin 0.033 % topical cream 1 applic topical TID PRN pain 05/03/24 Unknown Rx #56.6 grams metformin 500 mg tablet 500 mg PO DAILY DIABETES #90 tabs 06/25/24 Unknown Rx atorvastatin 10 mg tablet (Lipitor) 10 mg PO QHS HLD #30 tabs 08/06/24 Unknown Rx Allergy/AdvReac Type Severity Reaction Status Date / Time No Known Allergies Allergy Verified 09/11/24 07:56 Family History Mother Arthritis Diabetes Hypertension Grandmother Arthritis High cholesterol Hypertension Grandfather Colon cancer Surgical History S/P left hemicolectomy (10/24/23) Status post right hemicolectomy History of surgical procedure Hx of neck surgery Social History household members: spouse current occupational status: employed 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
--- NOTE | 2024-09-11 08:06 | H&P.OPEN ---
HPI - General HPI Narrative KALEIGH CUELLAR, is a 54 M who presents for surveillance colonoscopy. He had colon cancer 1 year ago and had a right hemicolectomy. Reports no issues since then. Denies blood in the stool. [facility] Medical History (Updated 09/07/24 @ 11:14 by Glenys Rose) Cancer Colon cancer Loss of hearing Wears contact lenses Alcohol use Restless legs Back pain Injury of head and neck Dietary restriction History of ulceration Heartburn Former smoker CPAP (continuous positive airway pressure) dependence COPD (chronic obstructive pulmonary disease) Shortness of breath on exertion Leg cramps History of edema History of stress test History of irregular heartbeat Diabetes Family hx of colon cancer Gout Bone fracture Home Medications ?Medication ?Instructions ?Recorded ?Last Taken ?Type ibuprofen 200 mg tablet 400 mg PO Q6H PRN PRN pain 08/09/23 10/22/23 History gpzxkmda-zg-egkau 300 mcg-K 60 1 tab PO DAILY SUPPLEMENT 09/02/23 10/22/23 History mcg-lycop 600 mcg-lutein 300 mcg tablet (Century Men 50 Plus) capsaicin 0.033 % topical cream 1 applic topical TID PRN pain 05/03/24 Unknown Rx #56.6 grams metformin 500 mg tablet 500 mg PO DAILY DIABETES #90 tabs 06/25/24 Unknown Rx atorvastatin 10 mg tablet (Lipitor) 10 mg PO QHS HLD #30 tabs 08/06/24 Unknown Rx Allergy/AdvReac Type Severity Reaction Status Date / Time No Known Allergies Allergy Verified 09/11/24 07:56 Family History Mother Arthritis Diabetes Hypertension Grandmother Arthritis High cholesterol Hypertension Grandfather Colon cancer Surgical History S/P left hemicolectomy (10/24/23) Status post right hemicolectomy History of surgical procedure Hx of neck surgery Social History household members: spouse current occupational status: employed 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 pets and animals: No Smoking Status: Former smoker quit date: 12/14/21 pack-years: 20 alcohol intake: current alcohol intake frequency: a few times a month details: beer occasionally substance use type: does not use caffeine: Yes (1) Type: coffee frequency: 3-4 times per week do you feel safe at home: Yes Past Medical/Surgical History Planned Operation Planned Operative Procedure(s): CSCOPE Previous Hospitalizations/Surgeries HX Hospitalizations: Yes (10/23/24 HEMICOLECTOMY) Any Problems With Anesthesia: No You/Your Family Experience Fever (Hyperthermia) With Anes: No Cholinesterase deficiency: No Cardiovascular Hx Hypertension: No Respiratory Hx Sleep Apnea: Yes CPAP: Yes (NONCOMPLIANT) BIPAP: No Hx Respiratory Tract Infection/Cold (presently): No Result (for STOP score): Positive Smoking Status: Former smoker Neurological Does patient have nerve stimulator: No Miscellaneous Recent Exposure to Contagious Disease: No Allergies No Known Allergies Allergy (Verified 09/11/24 07:56) Discharge Is Pt Admitted From a Half-Way, or a Fdc: No After D/C, Where Do you Plan to Go: Return Home Vital Signs Vital Signs Vital Signs: 09/11/24 07:58 09/11/24 07:58 Temperature 97.8 F Temperature Source Temporal Pulse Rate 92 Respiratory Rate 16 Respiratory Pattern Normal Blood Pressure 141/91 H Blood Pressure Mean 107 Blood Pressure Source Monitor Blood Pressure Position Semi-Fowlers Blood Pressure Location Left Arm Pulse Ox 98 Oxygen Delivery Method Room Air Weight Weight: 251 lb 1.704 oz Body Mass Index (BMI) 31.4 Physical Exam Const alert and oriented x3 HEENT normocephalic Eyes PERRL Resp normal respiratory effort and normal air movement Cardio regular rate and regular rhythm GI soft to palpation, non-tender and non-distended Extremity normal to inspection Assessment & Plan Assessment/Plan (1) Colon cancer: QUALIFIERS: Colon location: ascending Qualified Code(s): C18.2 - Malignant neoplasm of ascending colon PLAN: Patient has a history of colon cancer in the right colon. He had a right hemicolectomy about 1 year ago. He is here for surveillance colonoscopy. I explained endoscopy in detail to the patient. I explained the risks including but not limited to stroke or heart attack with anesthesia, perforation of the GI tract, bleeding, infection. I explained that any of these could necessitate further emergency surgery. The patient understands and all questions were answered sufficiently. The patient wishes to proceed with procedure. Tung Webster MD Pager: [facility] [address] [place] [address], [address] [place] [address] Office: Surgery Risks - Colonoscopy Risks Include but are not Limited To: Risks include but are not limited to: Bleeding, perforation requiring further surgery, inability to complete colonoscopy requiring barium enema.
--- NOTE | 2024-09-11 08:32 | OP.CCLET_ITS ---
09/11/2024 Elly Bryson Md Re : Colonoscopy procedure for Alvino Ballard Dear Braydon This procedure was performed on Wednesday, September 11, 2024. My impressions and recommendations are as follows: Impressions : - The entire examined colon is normal on direct and retroflexion views. - No specimens collected. Recommendations : - Discharge patient to home. - Resume previous diet. - Continue present medications. - Repeat colonoscopy in 1 year for surveillance. My findings are described in the full procedure note, which is enclosed. If I can be of further assistance, please feel free to contact me at Doctor phone number(s): , Work: . Sincerely, Tung Webster MD 09/11/2024 8:32:11 AM This report has been signed electronically.
--- NOTE | 2024-09-11 08:32 | OP.COLON_ITS ---
Patient Name: Alvino Ballard Procedure Date: 09/11/2024 8:12 AM Date of : 1970 Age: 54 Procedure: Colonoscopy Indications: High risk colon cancer surveillance: Personal history of colon cancer Providers: Tung Webster MD Referring MD: Elly Bryson Md Medicines: Propofol per Anesthesia Patient Profile: Last Colonoscopy: 1 year ago. Complications: No immediate complications. Procedure: Pre-Anesthesia Assessment: - Prior to the procedure, a History and Physical was performed, and patient medications and allergies were reviewed. The patient's tolerance of previous anesthesia was also reviewed. The risks and benefits of the procedure and the sedation options and risks were discussed with the patient. All questions were answered, and informed consent was obtained. Prior Anticoagulants: The patient has taken no anticoagulant or antiplatelet agents. After reviewing the risks and benefits, the patient was deemed in satisfactory condition to undergo the procedure. After I obtained informed consent, the scope was passed under direct vision. Throughout the procedure, the patient's blood pressure, pulse, and oxygen saturations were monitored continuously. The Colonoscope was introduced through the anus and advanced to the ileocolonic anastomosis. The colonoscopy was performed without difficulty. The patient tolerated the procedure well. The quality of the bowel preparation was good. Anatomical landmarks were photographed. Scope In: 8:19:11 AM Scope Withdrawal Time 0 hours 6 minutes 17 seconds Scope Out: 8:29:01 AM Total Procedure Duration Time 0 hours 9 minutes 50 seconds Findings: The entire examined colon appeared normal on direct and retroflexion views. Impression: - The entire examined colon is normal on direct and retroflexion views. - No specimens collected. Recommendation: - Discharge patient to home. - Resume previous diet. - Continue present medications. - Repeat colonoscopy in 1 year for surveillance. Procedure Code(s): --- Professional --- 45772, Colonoscopy, flexible; diagnostic, including collection of specimen(s) by brushing or washing, when performed (separate procedure) Diagnosis Code(s): --- Professional --- Z85.038, Personal history of other malignant neoplasm of large intestine CPT copyright 2021 [employer]. All rights reserved. The codes documented in this report are preliminary and upon hcc coders review may be revised to meet current compliance requirements. Tung Webster MD 09/11/2024 8:32:11 AM This report has been signed electronically. Number of Addenda: 0 Note Initiated On: 09/11/2024 8:12 AM
--- NOTE | 2024-09-11 08:40 | PCM.POST.ANE ---
Anesthesia: Postop Eval I Current Vital Signs Temperature: 97.3 F Pulse Rate: 87 Blood Pressure: 110/83 Respiratory Rate: 16 Pulse Ox: 96 Oxygen Delivery Method: Room Air Assessment Airway patent: Yes Spontaneous unlabored respirations: Yes Mental status: Awake and Calm nausea: No Vomiting: No Anesthesia Complication: No Fluid Hydration Crystalloid volume administer (ml): 500 Total IV fluid infused: 500 Progress Note Anesthesia document: Postop Eval 1 completed: Yes
[2024-09-11 09:03] LABS: Bedside Glucose 176 mg/dL (74-106)
--- NOTE | 2024-09-11 13:10 | PCM.POSTANE2 ---
Anesthesia Postop Eval I Sum Postop Eval Completion status Anesthesia document: Postop Eval 1 completed: Yes Anesthesia Postop Eval I Summary Anesthesia Postop Eval I Summary: Anesthesia Postop Eval I: Assessment Summary Airway patent Yes 09/11/24 08:41 [email or web address] Spontaneous unlabored Yes 09/11/24 08:41 [email or web address] respirations Mental status Awake,Calm 09/11/24 08:41 [email or web address] nausea No 09/11/24 08:41 [email or web address] Vomiting No 09/11/24 08:41 [email or web address] Anesthesia Postop Eval I: Fluid Summary Crystalloid volume administer 500 09/11/24 08:41 [email or web address] (ml) Colloids volume administered ( ml) Blood Product volume administered (ml) Total IV fluid infused 500 09/11/24 08:41 [email or web address] Anesthesia Postop Eval I: Summary Notes Anesthesia Complication No 09/11/24 08:41 [email or web address] Anesthesia Complication Comment: Post-operative progress note Anesthesia: Postop Eval II Evaluation Mental status: Awake and Calm Pain Level: 0 nausea: No Vomiting: No Complications Anesthesia Complication: No
== END 2024-09-11 08:59 | disposition home or self-care (01) ==
LOC: EN 07:38 → AC 07:39
PROVIDERS: PCP Internal Medicine; Referring Provider Internal Medicine; Visit Provider Surgery
PROC: 0DJD8ZZ Inspection of Lower Intestinal Tract, Via Natural or Artificial Opening Endoscopic (ICD-10-PCS; CPT 45378; principal; 2024-09-11 08:40)
DX: Z12.11 Encounter for screening for malignant neoplasm of colon (principal); J44.9 Chronic obstructive pulmonary disease, unspecified; E11.9 Type 2 diabetes mellitus without complications; Z87.891 Personal history of nicotine dependence; Z80.0 Family history of malignant neoplasm of digestive organs; Z90.49 Acquired absence of other specified parts of digestive tract; Z85.038 Personal history of other malignant neoplasm of large intestine
CPT/HCPCS: 45378; 82962; J2405

== ENCOUNTER → 2024-11-01 | Outpatient (CLI) | payer OTHER, SELFPAY ==
[2024-11-01 12:30] LABS: Absolute Lymphocyte Count 2.59 X10^3/uL (0.83-4.51); Absolute Neutrophil Count 6.1 X10^3/uL (2.0-7.7); Basophil# 0.11 X10^3/uL; Basophil% 1.1 % (0-1); Eosinophil# 0.15 X10^3/uL; Eosinophils% 1.5 % (0-5); Hematocrit 46.9 % (40-54); Hemoglobin 15.5 g/dL (13.0-16.5); Lymphocyte # 2.59 X10^3/ul (0.83-4.51); Mean Corpuscular Hgb 29.9 pg (27.0-32.0); Mean Corpuscular Volume 90.5 fL (80-94); Monocyte# 0.97 X10^3/uL; Monocyte% 9.7 % (0-10); NRBC Flagged by Analyzer 0 % (0-5); Neutrophil # 6.11 X10^3/uL (2.7-7.7); Neutrophil % 61.3 % (47-70); Platelet Count 345 K/mm3 (150-450); RBC Distribution Width CV 13.2 % (11.6-14.6); RBC Distribution Width SD 43.6 fl (35.1-43.9); Red Blood Count 5.18 M/mm3 (4.6-6.2)
[2024-11-01 13:09] LABS: ALB/GLOB Ratio 1.4 RATIO (0.9-2.4); AST(SGOT) 35 U/L (<=37); Alanine Aminotransfer ALT/SGPT 56 U/L (<=46); Albumin, Serum 4.2 g/dL (3.5-5.0); Alkaline Phosphatase 83 U/L (40-129); Anion Gap 15 (5-15); BUN 16 mg/dL (4-19); BUN/Creat Ratio 16.5 RATIO (10-20); Calcium,Total 10.1 mg/dL (7.6-11.0); Carbon Dioxide 21.6 mmol/L (21.0-32.0); Chloride 105 mmol/L (98-108); Cholesterol 114 mg/dL (<=200); Creatinine, Serum 0.95 mg/dL (0.70-1.20); EST Glomerular Filtration Rate 96 (>60); Globulin 2.9 g/dL (2.2-4.2); Glucose 188 mg/dL (70-99); High Density Lipoprotein 33 mg/dL; Low Density Lipoprotein Calc. 34 mg/dL; Potassium 4.5 mmol/L (3.3-5.1); Protein, Total 7.2 g/dL (5.9-8.4); Sodium Level 141 mmol/L (133-145); Total Bilirubin 0.64 mg/dL (0.00-1.30); Triglycerides 236 mg/dL; Very Low Density Lipoprotein 47 mg/dL (5-40); cholesterol:hdl ratio screen 3.51
[2024-11-01 13:11] LABS: Microalbumin,Random Urine < 12.0 mg/L (NO RANGE EST.); Microalbumin:Creatinine Ratio UNABLE TO CALCULATE mg/g CRE
== END | disposition home or self-care (01) ==
LOC: BIMLAB 08:43
PROVIDERS: PCP Internal Medicine; Referring Provider Internal Medicine; Visit Provider Internal Medicine
DX: E11.9 Type 2 diabetes mellitus without complications (principal)
CPT/HCPCS: 36415; 80053; 80061; 82043; 82570; 85025